=== PATIENT | male | born 1945 | race African-American/Black ===

== ENCOUNTER 2019-10-09 05:03 | Inpatient (IN) | payer OTHER, MEDICARE, SELFPAY ==
[~2019-10-09] VITALS: Ht 172.7 cm; Wt 66.2 kg
[2019-10-09 05:03] VITALS: BP_SYST 130
--- NOTE | 2019-10-09 05:03 | NUR ---
Patient to ER bed 08 to gown for evaluation. Side rails up. Report given to ROMY Nowak.
--- NOTE | 2019-10-09 05:08 | NUR ---
Pt began to pepper, provided surgical mask
--- NOTE | 2019-10-09 05:10 | NUR ---
Pt afebrile. Pt presents with productive cough. Pt denies chills, pain, chest pain, nausea, vomiting, recent travel, and being in contact with anyone confirmed with COVID-19.
--- NOTE | 2019-10-09 05:10 | NUR ---
Pt BIB ALS from [place] with c/o SOB. Pt A&Ox4. Pt states SOB began approximately 30 minutes ago. Pt has history of DM, Multiple Myeloma, CKD, COPD, A-Fib and diagnosed with diagnosed with Pneumonia on 09/13/2019. Per ALS, 5mg albuterol given en route and 20 g IV started on L AC. Per EMS, blood looked "very pink." Per facility, pt recieved blood transfusion for HBG of 6.1 at [facility] before he was returned to [place] on the 10/01/2019. Per facility, pt was started on zosyn 3.375 mg Q6HR IV from 09/14/2019 to 09/19/2019. Per facility, pt does not recieve dialysis. Pt arrives on 6 liters nasal cannula with oxygen satursation at 100%. Pt presents with camilla cath in R chest. Pt presents with labored breathing, pulse of 104 bpm, and respirations of 28. Will continue to monitor.
--- NOTE | 2019-10-09 05:13 | NUR ---
ER at bedside examining patient.
[2019-10-09] MEDS ORDERED: IPRATROPIUM BROM 0.5 MG/2.5 ML VIAL.NEB (ATROVENT) INH ONE (05:15)
[2019-10-09] MEDS ORDERED: ALBUTEROL SULFATE 0.083% 2.5 MG/3 ML VIAL.NEB INH ONE (05:15)
[2019-10-09] MEDS ORDERED: methylPREDNISolone SOD SUCC/PF 62.5 MG/ML VIAL IVP ONE (05:15)
[2019-10-09] MEDS ORDERED: cefTRIAXone 1 GM IVPB PREMIX 50 ML IV ONE (05:15)
--- NOTE | 2019-10-09 05:27 | NUR ---
RT at bedside.
--- NOTE | 2019-10-09 05:28 | NUR ---
Radiology at bedside.
--- NOTE | 2019-10-09 05:35 | NUR ---
Blood for labwork drawn from right wrist. Patient tolerated well. Blood cultures drawn, prior to administration of antibiotic.
--- NOTE | 2019-10-09 05:40 | NUR ---
Pt Dry-heaving in bed. No vomit.
[2019-10-09] MEDS ORDERED: ONDANSETRON HCL 4 MG/2 ML VIAL IVP ONE (05:45)
--- NOTE | 2019-10-09 06:15 | NUR ---
Pt medicated per MD orders. Pt tolerated well.
[2019-10-09 06:45] LABS: ANION GAP 21 (5-15); CALCIUM 8.6 mg/dL (8.4-11.0); CHLORIDE 110 mmol/L (98-107); CREATININE 2.83 mg/dL (0.55-1.30); GLUCOSE 139 mg/dL (70-99); SODIUM SERUM 144 mmol/L (136-145); UREA NITROGEN, BLOOD 57 mg/dL (8-21)
[2019-10-09 06:51] LABS: ALANINE AMINOTRANSFERASE 53 U/L (12-78); ALBUMIN 1.7 g/dL (3.4-4.8); ASPARTATE AMINOTRANSFERASE 38 U/L (10-37); TOTAL BILIRUBIN 0.2 mg/dL (0.0-1.0)
[2019-10-09 06:55] LABS: HEMATOCRIT 36.6 % (36-54); HEMOGLOBIN 12.1 g/dL (14.0-18.0); MEAN CORPUSCULAR HEMOGLOBIN 30 pg (27-31); MEAN CORPUSCULAR HGB CONC 33 % (32-36); MEAN CORPUSCULAR VOLUME 92 fL (79.0-98.0); PLATELET COUNT (AUTO) 59 K/uL (130-430); RED CELL DISTRIBUTION WIDTH 16.3 % (9.0-15.0); WHITE BLOOD COUNT (AUTO) 5.2 K/uL (4.8-10.8)
--- NOTE | 2019-10-09 07:25 | NUR ---
Patient will be admitted to care of [facility]. Admitted to TELEMETRY unit. Awaiting bed placement. Belongings list completed. Complete and up to date summary report printed. SBAR report to be given at bedside with opportunity for questions.
[2019-10-09 07:28] LABS: ATYPICAL LYMPHOCYTES % 1 % (0-0); BAND % (MANUAL) 6 % (0-6); BASOPHILS % (MANUAL) 0 % (0-2); EOSINOPHILS % (MANUAL) 0 % (0-7); LYMPHOCYTES % (MANUAL) 15 % (20-46); MONOCYTES % (MANUAL) 5 % (0-11)
[2019-10-09] MEDS ORDERED: AMIO100T4 PO (07:34)
[2019-10-09] MEDS ORDERED: LIP80 PO (07:34)
[2019-10-09] MEDS ORDERED: ASA81 PO (07:34)
[2019-10-09] MEDS ORDERED: AMLO5TAB4 PO (07:34)
--- NOTE | 2019-10-09 07:35 | NUR ---
Report received from ROMY Dalton. Awaiting room assignment.
--- NOTE | 2019-10-09 07:40 | NUR ---
Patient will be admitted to care of Dr. Rustam Jordan. Admitted to Telemetry unit. Will go to room 124A. Belongings list completed. Complete and up to date summary report printed. SBAR report to be given at bedside with opportunity for questions.
[2019-10-09] MEDS ORDERED: ENAL10TA PO (07:50)
[2019-10-09] MEDS ORDERED: PHEDM120 PO (07:50)
[2019-10-09] MEDS ORDERED: GLUC1KIT IJ (07:50)
[2019-10-09] MEDS ORDERED: COLL15OI3 TP (07:50)
[2019-10-09] MEDS ORDERED: TAMS-11 PO (07:50)
[2019-10-09] MEDS ORDERED: NITSL SL (07:50)
[2019-10-09] MEDS ORDERED: APIX5TAB PO (07:50)
[2019-10-09] MEDS ORDERED: PRO40 PO (07:50)
[2019-10-09] MEDS ORDERED: SSNOVOLOG SUBCUT (07:50)
[2019-10-09] MEDS ORDERED: NEPH PO (07:50)
[2019-10-09] MEDS ORDERED: PREG75CA PO (07:50)
[2019-10-09] MEDS ORDERED: PRED20TA PO (07:50)
[2019-10-09 08:32] VITALS: BP_SYST 123
--- NOTE | 2019-10-09 08:34 | NUR ---
Pulmo consult called: for Dr. Dacosta, regarding COPD, ordered by Dr. Jordan, spoke with Mony at exchange.
--- NOTE | 2019-10-09 08:35 | NUR ---
ID consult called: for Dr. Loomis, regarding pna, ordered by Dr. Jordan, spoke with Kesha.
--- NOTE | 2019-10-09 09:20 | NUR ---
ADMIT NOTE Received pt from ER to the floor with a diagnosis of PNA, COPD EXACERBATION. Admission process initiated. patient oriented to pain management, safety and call light-teach back done.
--- NOTE | 2019-10-09 09:38 | NUR ---
CONSULTATION PAGED/CALLED Reason for Consultation: PNA/COPD Person Who was Notified: DR. CHUN Consulting Physician: DR. CHUN Patient Accounting Representative Specialty: RABBIT FANCIER Ordering Physician: DR. MURTAZA LAND
[2019-10-09 09:57] LABS: BILIRUBIN,URINE NEGATIVE (NEGATIVE); BLOOD, URINE 1+ (NEGATIVE); CLARITY/URINE CLEAR (CLEAR); COLOR,URINE YELLOW (YELLOW); GLUCOSE,URINE NEGATIVE (NEGATIVE); KETONES,URINE NEGATIVE (NEGATIVE); LEUKOCYTE ESTERASE ,URINE TRACE (NEGATIVE); NITRITE, URINE NEGATIVE (NEGATIVE); PH,URINE 5.5 (5.0-8.0); PROTEIN URINE 1+ (NEGATIVE); UROBILINOGEN,URINE 0.2 (0.2-1.0)
[2019-10-09] MEDS ORDERED: NITROGLYCERIN 0.4 MG TAB.SUBL SL PRN (11:15)
[2019-10-09] MEDS ORDERED: ACETAMINOPHEN 325 MG TABLET PO PRN (11:15)
[2019-10-09] MEDS ORDERED: ONDANSETRON HCL 4 MG/2 ML VIAL IVP PRN (11:15)
[2019-10-09] MEDS ORDERED: HYDROcodone/ACETAMIN 5-325 MG TAB (NORCO/ VICODIN) PO PRN (11:15)
[2019-10-09] MEDS ORDERED: D5W 1,000 ML IV PRN (11:30)
[2019-10-09] MEDS ORDERED: DEXTROSE 50%-WATER 50 ML DISP.SYRIN IVP PRN (11:30)
[2019-10-09] MEDS ORDERED: PREGABALIN 75 MG CAPSULE (LYRICA) PO ONE (11:30)
[2019-10-09] MEDS ORDERED: APIXABAN 2.5 MG TABLET PO ONE (11:30)
[2019-10-09] MEDS ORDERED: GLUCOSE 15 GM GEL (in 37.5 GM TUBE) PO PRN (11:30)
--- NOTE | 2019-10-09 11:35 | NUR ---
Nephro consult called: for Dr. Gaming, regarding MANNY, ordered by Dr. Jordan, spoke with Grayson.
--- NOTE | 2019-10-09 11:43 | NUR ---
Cardiac consult called: for Dr. Pao Jordan, regarding elevated troponin, ordered by Dr. Rustam Jordan, spoke with Ruba.
[2019-10-09 11:44] LABS: BACTERIA,URINE FEW /HPF (None Seen); MUCUS,URINE 1+ /LPF (None Seen); YEAST,URINE Rare /HPF (None Seen)
--- NOTE | 2019-10-09 11:48 | NUR ---
PATIENT'S REGULAR MEDS WILL BE GIVEN PER ORDER.
[2019-10-09 12:00] VITALS: BP_SYST 140
[2019-10-09] MEDS ORDERED: PANTOPRAZOLE SODIUM 40 MG TAB PO ONE (12:00)
[2019-10-09] MEDS ORDERED: amLODIPine BESYLATE 5 MG TABLET PO ONE (12:00)
[2019-10-09] MEDS ORDERED: ENALAPRIL MALEATE (VASOTEC) Non-Formular 10 MG TABLET PO ONE (12:00)
[2019-10-09] MEDS ORDERED: AMIODARONE HCL 200 MG TABLET PO ONE (12:00)
[2019-10-09] MEDS ORDERED: NEPHROVITE, (FOLIC ACID/VITAMIN B COMP W-C 1 TAB) PO ONE (12:00)
[2019-10-09] MEDS ORDERED: TAMSULOSIN HCL 0.4 MG CAP PO ONE (12:00)
[2019-10-09] MEDS ORDERED: ASPIRIN 81 MG TAB.CHEW PO ONE (12:00)
[2019-10-09] MEDS: INSULIN REGULAR, HUMAN 100 UNITS/ML, 10 ML VIAL (humuLIN R) SUBCUT PRN ×3 (12:09→21:25)
--- NOTE | 2019-10-09 12:30 | NUR ---
BLOOD SUGAR 294. 6 UNITS OF RI IS GIVEN PER SLIDING SCALE.
[2019-10-09] MEDS ORDERED: FLUCONAZOLE 200 MG TABLET (DIFLUCAN) PO ONE (12:45)
[2019-10-09] MEDS: MEROPENEM 500 MG in NS 50 ML IV SCH (13:59)
[2019-10-09] MEDS: NORMAL SALINE 5 ML DISP.SYRIN IVF SCH ×4 (14:00→22:00)
--- NOTE | 2019-10-09 14:00 | NUR ---
ANTIBIOTICS IS GIVEN PER 'S ORDER.
[2019-10-09] MEDS: AZITHROMYCIN 500 MG in NS 250 ML IV SCH (14:28)
--- NOTE | 2019-10-09 15:34 | NUR ---
PATIENT RECEIVES LAB DRAW STAFF SOFTWARE ENGINEER. TOLERATED WITHOUT DISTRESS.
[2019-10-09 16:00] VITALS: BP_SYST 132
[2019-10-09] MEDS: HYDROcodone/ACETAMIN 10-325 MG TAB PO PRN ×2 (16:25→21:22)
[2019-10-09] MEDS: methylPREDNISolone SOD SUCC 40 MG/ML VIAL IVP SCH (17:29)
[2019-10-09 17:37] LABS: ERYTHROCYTE SEDIMENTATION RATE > 140 MM/HR (0-15)
--- NOTE | 2019-10-09 17:40 | NUR ---
Blood sugar 287. RI is given per sliding scale.
--- NOTE | 2019-10-09 19:30 | NUR ---
Opening note Received SBAR from ROMY Titus. Patient resting in bed, w/eyes closed, no distress noted. Nonlabored breathing on 2L NC. IV is SL to LAC. Bed is locked in lowest position, call light w/in reach, side rails up 2x and bed alarm on.
[2019-10-09 20:00] VITALS: BP_SYST 116
--- NOTE | 2019-10-09 21:08 | NUR ---
Fingerstick BG Fingerstick bgt result was 189 mg/dL, covered w/ 2u of insulin per sliding scale order.
[2019-10-09] MEDS: PREGABALIN 75 MG CAPSULE (LYRICA) PO SCH (21:16)
[2019-10-09] MEDS: ATORVASTATIN 20 MG TABLET PO SCH (21:19)
[2019-10-09] MEDS: APIXABAN 2.5 MG TABLET PO SCH (21:26)
--- NOTE | 2019-10-09 21:26 | NUR ---
Meds / Pain med Due medications given, educated on side effects and he verbalized understanding. He reported severed pain related to 'shingles' whidh is on his right side of chest and travels to lateral and post thoracic area. He was give [place] 10-325 for severe pain as ordered, will continue to monitor.
--- NOTE | 2019-10-09 23:01 | NUR ---
Patient care / bed bath Patient was provided with bed bath, including CHG bath. New linen change to bed, patient tolerated. Safety precautions in place.
--- NOTE | 2019-10-09 23:15 | NUR ---
Lab draw internet technology manager at bed side for blood draw. Patient refused attempt to draw on hands and tech successfully bernabe blood from left wrist; patient tolerated.
[2019-10-10] VITALS: BP_SYST 122
[2019-10-10] MEDS: MEROPENEM 500 MG in NS 50 ML IV SCH ×2 (01:30→13:43)
--- NOTE | 2019-10-10 01:30 | NUR ---
Antibiotic Due antibiotic, Merrem, infusing well. Patient educated on side effects and he verbalized understanding. He was repositioned and has no further needs. Safety precautions in place, will continue to monitor.
--- NOTE | 2019-10-10 03:30 | NUR ---
Resting Patient resting in comfortable position, no SOB, no distress. Safety precautions maintained
[2019-10-10 05:00] VITALS: BP_SYST 122
--- NOTE | 2019-10-10 05:30 | NUR ---
lab draw quality assurance/r&d lab technician in for lab draw
[2019-10-10] MEDS: NORMAL SALINE 5 ML DISP.SYRIN IVF SCH ×6 (05:45→22:00)
[2019-10-10] MEDS: methylPREDNISolone SOD SUCC 40 MG/ML VIAL IVP SCH ×2 (05:47→17:29)
--- NOTE | 2019-10-10 05:50 | NUR ---
meds Due mediation, Solumedrol, given; educated on side effects, he verbalized understanding.
[2019-10-10] MEDS ORDERED: cefTRIAXone 1 GM IVPB PREMIX 50 ML IV SCH (06:00)
--- NOTE | 2019-10-10 06:45 | NUR ---
Dressing change / Fingerstick BG Dressing change done per policy and took photo, documented in MST. Fingerstick bgt result was 133 mg/dL, no coverage.
[2019-10-10 06:46] LABS: ANION GAP 13 (5-15); CALCIUM 8.3 mg/dL (8.4-11.0); CHLORIDE 110 mmol/L (98-107); CREATININE 2.49 mg/dL (0.55-1.30); GLUCOSE 144 mg/dL (70-99); PHOSPHORUS 4.3 mg/dL (2.7-4.5); SODIUM SERUM 141 mmol/L (136-145); UREA NITROGEN, BLOOD 57 mg/dL (8-21)
[2019-10-10 06:48] LABS: BASOPHILS % (AUTO) 0.1 % (0.0-2.0); HEMATOCRIT 23.9 % (36-54); HEMOGLOBIN 7.9 g/dL (14.0-18.0); LYMPHOCYTES # (AUTO) 0.3 K/uL (1.0-5.5); MEAN CORPUSCULAR HEMOGLOBIN 31 pg (27-31); MEAN CORPUSCULAR HGB CONC 33 % (32-36); MEAN CORPUSCULAR VOLUME 93 fL (79.0-98.0); MONOCYTES # (AUTO) 0.4 K/uL (0.0-1.0); MONOCYTES % (AUTO) 7.6 % (1.7-9.3); NEUTROPHILS # (AUTO) 4.2 K/uL (1.8-7.7); PLATELET COUNT (AUTO) 59 K/uL (130-430); RED BLOOD CELL COUNT(AUTO) 2.59 MIL/uL (4.2-6.2); RED CELL DISTRIBUTION WIDTH 16.7 % (9.0-15.0); WHITE BLOOD COUNT (AUTO) 4.9 K/uL (4.8-10.8)
--- NOTE | 2019-10-10 07:05 | NUR ---
Closing note Patient resting in bed, awake, no distress noted. Nonlabored breathing on 2L NC. IV is SL to LAC. Bed is locked in lowest position, call light w/in reach, side rails up 2x and bed alarm on. will endorse care to incoming nurse.
[2019-10-10 08:00] VITALS: BP_SYST 130
--- NOTE | 2019-10-10 08:00 | NUR ---
A/OX4. ON O2 NC AT 2L, SATTING AT 100%. SR ON MONITOR. CALL LIGHT IS AT BEDSIDE IN PATIENT'S HANDS. BED LOCKED AT THE LOWEST POSITION, WILL CONTINUE TO MONITOR.
[2019-10-10] MEDS: PANTOPRAZOLE SODIUM 40 MG TAB PO SCH (08:47)
[2019-10-10] MEDS: PREGABALIN 75 MG CAPSULE (LYRICA) PO SCH ×2 (08:47→21:00)
[2019-10-10] MEDS: NEPHROVITE, (FOLIC ACID/VITAMIN B COMP W-C 1 TAB) PO SCH (08:48)
[2019-10-10] MEDS: TAMSULOSIN HCL 0.4 MG CAP PO SCH (08:48)
[2019-10-10] MEDS: AMIODARONE HCL 200 MG TABLET PO SCH (08:51)
[2019-10-10] MEDS: ENALAPRIL MALEATE (VASOTEC) Non-Formular 10 MG TABLET PO SCH (08:52)
[2019-10-10] MEDS: amLODIPine BESYLATE 5 MG TABLET PO SCH (08:52)
[2019-10-10] MEDS: APIXABAN 2.5 MG TABLET PO SCH ×2 (08:54→20:56)
[2019-10-10] MEDS: BALSAM PERU/CASTOR OIL 60 GM OINT...G. TP SCH (09:00)
[2019-10-10] MEDS ORDERED: ASPIRIN 81 MG TAB.CHEW PO SCH (09:00)
[2019-10-10 09:06] LABS: NEUTROPHILS % (AUTO) 85.3 % (40.0-70.0)
--- NOTE | 2019-10-10 10:10 | NUR ---
Nutrition Update Darrel Scale 15 noted. Pt admitted for PNA, COPD [facility] BMI: 22.2 kg/m2 RD to follow per nutrition care standards.
--- NOTE | 2019-10-10 10:20 | NUR ---
patient is resting at this time. Tolerated without distress.
--- NOTE | 2019-10-10 11:40 | NUR ---
Covid-19 is (-). Charge nurse is aware.
[2019-10-10 12:00] VITALS: BP_SYST 125
[2019-10-10] MEDS: INSULIN REGULAR, HUMAN 100 UNITS/ML, 10 ML VIAL (humuLIN R) SUBCUT PRN ×3 (12:11→21:03)
--- NOTE | 2019-10-10 12:40 | NUR ---
Report is given to ROMY Zuleta, at bedside. Patient is A/Ox4 when the care is transferred.
--- NOTE | 2019-10-10 12:41 | NUR ---
Report Received report received from Tacho STANTON, patient is alert and oriented x4, eating lunch, aspiration precautions in place, denies pain, no distress, patient made of room change after lunch, call light is within reach, fall and aspiration precautions in place.
--- NOTE | 2019-10-10 14:00 | NUR ---
Rounds/Medication patient resting in bed, awake, denies pain, no distress, educated on IV antibiotic uses and potential side effects, he verbalized understanding, IV line is patent and infusing well, turned, cleaned and repositioned patient with DISK OPERATOR, continuing to monitor, bed in lowest position, three side rails up, bed alarm on, call light placed within reach, fall and aspiration precautions in place.
[2019-10-10 14:17] LABS: HEMATOCRIT 24.1 % (36-54)
[2019-10-10] MEDS: AZITHROMYCIN 500 MG in NS 250 ML IV SCH (14:48)
[2019-10-10 16:13] VITALS: BP_SYST 106
--- NOTE | 2019-10-10 17:30 | NUR ---
RN rounds/Medication patient resting in bed, eyes closed, breathing is even and unlabored, easy to wake, patient denies pain, no distress, blood glucose checked and insulin coverage provided per MD orders, educated the patient on Solu-Medrol uses and potential side effects, patient verbalized understanding, IV line is patent and infusing well, no other needs at this time, continuing to monitor, bed in lowest position, three side rails up, bed alarm on, call light within reach, fall and aspiration precautions in place.
--- NOTE | 2019-10-10 18:37 | NUR ---
Closing note patient resting in bed, eyes closed, breathing is even and unlabored, no signs of distress, IV line is patent and infusing well, all needs met, will endorse report to NOC shift nurse, bed in lowest position, three side rails up, bed alarm on, fall and aspiration precautions in place, call light is within reach.
--- NOTE | 2019-10-10 19:40 | NUR ---
Opening Notes Patient is awake, talking on the phone at this time. No signs of distress noted. Breathing is even and unlabored. IV is patent and infusing fluids TKO. No other needs at this time. Bed is locked in the lowest position. Side rails up X3. Call light within reach
[2019-10-10 20:00] VITALS: BP_SYST 117
[2019-10-10] MEDS: ATORVASTATIN 20 MG TABLET PO SCH (20:56)
--- NOTE | 2019-10-10 21:00 | NUR ---
Medications Administered scheduled medications. Patient refused Lyrica. Educated patient on action and side effects. Patient verbalized an understanding. Accu check completed. Blood sugar was 199, administered insulin per sliding scale. Repositioned patient at this time. No other needs. Bed is locked in the lowest position. Side rails up X3. Call light within reach
[2019-10-11] MEDS: MEROPENEM 500 MG in NS 50 ML IV SCH ×2 (00:15→13:25)
--- NOTE | 2019-10-11 00:15 | NUR ---
Medication/Rounds Patient sleeping at this time. No signs of distress noted. Breathing is unlabored and even. Administered scheduled medications, educated patient on the side effects. Patient verbalized an understanding. IV patent and infusing medication. Repositioned patient at this time. No other needs. Call light is within reach. Bed is locked in the lowest position. Side rails up X3.
[2019-10-11 00:44] VITALS: BP_SYST 126
--- NOTE | 2019-10-11 02:00 | NUR ---
RN Rounds Patient sleeping at this time. No signs of distress noted. Breathing is unlabored and even. IV patent and infusing TKO. Repositioned patient at this time. No other needs. Call light is within reach. Bed is locked in the lowest position. Side rails up X3.
[2019-10-11] MEDS: methylPREDNISolone SOD SUCC 40 MG/ML VIAL IVP SCH ×2 (05:56→17:16)
[2019-10-11] MEDS: NORMAL SALINE 5 ML DISP.SYRIN IVF SCH ×6 (05:57→22:00)
--- NOTE | 2019-10-11 06:15 | NUR ---
Medication/ Rounds Administered scheduled medication, patient tolerated well. Educated patient on possible side effects, verbalized an understanding. No signs of distress noted. Breathing is unlabored and even. IV patent and infusing TKO. Repositioned patient at this time. No other needs. Call light is within reach. Bed is locked in the lowest position. Side rails up X3.
[2019-10-11 06:48] LABS: BASOPHILS % (AUTO) 0.1 % (0.0-2.0); LYMPHOCYTES # (AUTO) 0.4 K/uL (1.0-5.5); LYMPHOCYTES % (AUTO) 9.4 % (20.5-51.5); MEAN CORPUSCULAR HEMOGLOBIN 31 pg (27-31); MEAN CORPUSCULAR HGB CONC 33 % (32-36); MEAN CORPUSCULAR VOLUME 93 fL (79.0-98.0); MONOCYTES # (AUTO) 0.3 K/uL (0.0-1.0); MONOCYTES % (AUTO) 7.2 % (1.7-9.3); NEUTROPHILS % (AUTO) 83.3 % (40.0-70.0); PLATELET COUNT (AUTO) 60 K/uL (130-430); RED BLOOD CELL COUNT(AUTO) 2.26 MIL/uL (4.2-6.2); RED CELL DISTRIBUTION WIDTH 17.1 % (9.0-15.0); WHITE BLOOD COUNT (AUTO) 4.8 K/uL (4.8-10.8)
--- NOTE | 2019-10-11 07:02 | NUR ---
Closing Notes Patient is resting at this time. No signs of distress noted. Breathing is even and unlabored. IV to left AC is patent. Urinal at bedside. All needs met throughout the shift. Bed is locked in the lowest position. Side rails up X3. Call light within reach. Will endorse care to dayshift RN
[2019-10-11 07:10] LABS: HEMOGLOBIN 6.9 g/dL (14.0-18.0)
[2019-10-11 07:11] LABS: HEMATOCRIT 20.9 % (36-54)
--- NOTE | 2019-10-11 07:14 | NUR ---
godfrey graves for critical lab.
[2019-10-11 07:17] LABS: ALANINE AMINOTRANSFERASE 44 U/L (12-78); ALBUMIN 1.5 g/dL (3.4-4.8); ANION GAP 14 (5-15); ASPARTATE AMINOTRANSFERASE 28 U/L (10-37); CALCIUM 7.9 mg/dL (8.4-11.0); CHLORIDE 108 mmol/L (98-107); CREATININE 2.33 mg/dL (0.55-1.30); GLUCOSE 127 mg/dL (70-99); PHOSPHORUS 3.3 mg/dL (2.7-4.5); POTASSIUM 5.7 mmol/L (3.5-5.1); SODIUM SERUM 139 mmol/L (136-145); TOTAL BILIRUBIN 0.3 mg/dL (0.0-1.0); UREA NITROGEN, BLOOD 52 mg/dL (8-21)
--- NOTE | 2019-10-11 07:27 | NUR ---
CRITICAL LAB HEMOGLOBIN 6.9, HEMATOCRIT 20.9, DR. HAUSER WAS PAGED AT [phone], HAS NOT CALLED BACK. ENDORSED CRITICAL LABS TO [facility] ST[facility]ON.
--- NOTE | 2019-10-11 07:40 | NUR ---
AM rounds: Patient is oriented x4. Denies pain. Low H/H 6.9/21.[address] Jordan, new orders received. Call light within reach.
[2019-10-11 07:42] LABS: ERYTHROCYTE SEDIMENTATION RATE > 140 MM/HR (0-15)
[2019-10-11] MEDS ORDERED: SODIUM POLYSTYRENE SULFONATE 15 GM/60 ML UDBTL PO ONE (07:45)
--- NOTE | 2019-10-11 08:04 | NUR ---
CONSULTATION PAGED/CALLED Reason for Consultation: possible GI bleed Person Who was Notified: Yasmin Consulting Physician: Elizabeth precision lens generator Consulting Database Administrator Specialty: GI Ordering Physician: Jr Larry
[2019-10-11 08:31] LABS: C-REACTIVE PROTEIN QUANT 6.2 mg/dL (0-0.5)
--- NOTE | 2019-10-11 08:53 | NUR ---
CONSULTATION PAGED/CALLED Reason for Consultation: Anemia/Throbocytopenia Person Who was Notified: Megan Consulting Physician: Raya Onofre Flour Mixer Helper Specialty: Hemato Ordering Physician: Jr Cruz
[2019-10-11] MEDS: PREGABALIN 75 MG CAPSULE (LYRICA) PO SCH ×3 (09:00→21:00)
[2019-10-11] MEDS: TAMSULOSIN HCL 0.4 MG CAP PO SCH (09:14)
[2019-10-11] MEDS: ENALAPRIL MALEATE (VASOTEC) Non-Formular 10 MG TABLET PO SCH (09:15)
[2019-10-11] MEDS: NEPHROVITE, (FOLIC ACID/VITAMIN B COMP W-C 1 TAB) PO SCH (09:16)
[2019-10-11] MEDS: amLODIPine BESYLATE 5 MG TABLET PO SCH (09:16)
[2019-10-11] MEDS: PANTOPRAZOLE SODIUM 40 MG TAB PO SCH (09:16)
[2019-10-11] MEDS: AMIODARONE HCL 200 MG TABLET PO SCH (09:20)
[2019-10-11] MEDS ORDERED: FOLIC ACID 1 MG TABLET PO ONE (10:30)
--- NOTE | 2019-10-11 10:45 | NUR ---
BT INITIATION: Consent signed per agreeing to administration of blood. Blood has been type and crossmatched. Blood sent from blood bank. Information on unit of blood checked against patient wristband at bedside by two nurses. All information matches. Patient or responsible republican informed of potential complications associated with blood transfusion. Informed of possible transfusion reaction symptoms. Aware of need to notify nurse at once of itching, shortness of breath, flushing, feeling of impending doom, or other symptoms not previously present. Vital signs taken within 5 minutes prior to initiation of transfusion. RN will remain with patient for first 15 minutes of transfusion at which time vital signs will be re-assessed.
--- NOTE | 2019-10-11 11:00 | NUR ---
15 minute check post initiation of blood transfusion: No reactions noted. Tolerating the transfusion well.
[2019-10-11 11:16] VITALS: BP_SYST 134
[2019-10-11] MEDS: INSULIN REGULAR, HUMAN 100 UNITS/ML, 10 ML VIAL (humuLIN R) SUBCUT PRN ×2 (11:24→20:45)
--- NOTE | 2019-10-11 11:36 | NUR ---
Dietitian Recommendations *Re[facility] Renal Standard diet, Low Potassium. *Encourage pt to increase PO intake. *Continue nephrovite. Please see Nutritional Assessment for details. MAKSIM, RD
[2019-10-11] MEDS: BALSAM PERU/CASTOR OIL 60 GM OINT...G. TP SCH (13:25)
--- NOTE | 2019-10-11 13:35 | NUR ---
BLOOD TRANSFUSION COMPLETION: Transfusion is completed, no reactions noted.
[2019-10-11] MEDS: AZITHROMYCIN 500 MG in NS 250 ML IV SCH (15:24)
--- NOTE | 2019-10-11 15:54 | NUR ---
Paid Search Marketing Analyst :met with pt. to conduct a [facility] ans Social Work Interview GLAZIER STRUCTURAL GLASS called pts. room, [phone], but there was no answer. GLAZIER STRUCTURAL GLASS called ans spoke to his daughter, Teer Abreu. She was able to assist in confirming the demographic info. She stated pt. has been at [place] on and off for a few months. She also mentioned when pt. is not at [place], he is at [facility] or [place] for medical treatment. She stated the goal is to have him eventually come back home. Pt. resides at home with her, his daughter, her and their children. Daughter Tere stated she is the POA, but does not have paperwork to show this. GLAZIER STRUCTURAL GLASS stated she can send it to her in the mail and explained to fill it out with her father and either get it notorized or signed by two witnesses. GLAZIER STRUCTURAL GLASS thanked her for her input and will remain available as needed.
[2019-10-11 16:34] VITALS: BP_SYST 138
--- NOTE | 2019-10-11 18:40 | NUR ---
End of shift Needs attended. No change in assessment.
--- NOTE | 2019-10-11 19:40 | NUR ---
Opening Notes Patient is awake, watching TV at this time. No signs of distress noted. Breathing is even and unlabored. IV is patent and infusing fluids TKO. No other needs at this time. Bed is locked in the lowest position. Side rails up X3. Call light within reach
[2019-10-11] MEDS: ATORVASTATIN 20 MG TABLET PO SCH (20:43)
--- NOTE | 2019-10-11 20:45 | NUR ---
Medications Administered scheduled medications, patient refused Lyrica at this time. Accu check was completed, blood glucose 169, administered insulin per sliding scale. Educated patient on side effects, verbalized an understanding. Patient tolerated well. repositioned patient at this time. Bed is locked in the lowest position. Side rails up X3. Call light within reach
--- NOTE | 2019-10-11 22:13 | NUR ---
A-fib Patient converted to A-fib at 2213. Assessed patient, no signs/symptoms of chest pain or dizziness. patient states "I feel fine." Bp 127/91, HR around 125, up to 140's. Will continue to monitor. Dr. Jordan,Y to be paged for orders
--- NOTE | 2019-10-11 22:30 | NUR ---
Surendra Cruz Informed Julian Birch Y of patient converting to A-fib and current status. Orders given by , RN read back orders. RN to input orders.
[2019-10-11] MEDS ORDERED: DILTIAZEM HCL 125 MG in D5W 100 ML IV SCH (22:45)
[2019-10-11] MEDS ORDERED: DILTIAZEM HCL 25 MG/5 ML VIAL IVP ONE (22:45)
--- NOTE | 2019-10-11 23:10 | NUR ---
Paged Dr. Jordan,Y Patient converted back to sinus rhythm at 2255 before Cardizem was given. MD Jordan was informed of conversion, new orders given. RN read back orders, and to input new orders.
[2019-10-11] MEDS: DILTIAZEM HCL 30 MG TABLET PO SCH (23:33)
[2019-10-11 23:38] LABS: BILIRUBIN,URINE NEGATIVE (NEGATIVE); BLOOD, URINE 1+ (NEGATIVE); CLARITY/URINE CLEAR (CLEAR); COLOR,URINE YELLOW (YELLOW); GLUCOSE,URINE TRACE (NEGATIVE); KETONES,URINE NEGATIVE (NEGATIVE); LEUKOCYTE ESTERASE ,URINE NEGATIVE (NEGATIVE); NITRITE, URINE NEGATIVE (NEGATIVE); PROTEIN URINE 2+ (NEGATIVE); UROBILINOGEN,URINE 0.2 (0.2-1.0)
--- NOTE | 2019-10-11 23:40 | NUR ---
Medication Administered Cardizem, PO per orders. Educated patient on action and side effects. patient verbalized an understanding. No other needs at this time. Addendum: 10/11/19 at 2342 by Sirena Martino RN BP is 136/81 and HR 74
[2019-10-12] VITALS: BP_SYST 136
[2019-10-12 00:13] LABS: BACTERIA,URINE FEW /HPF (None Seen); WBC,URINE 0-3 /HPF (0-3)
[2019-10-12] MEDS: MEROPENEM 500 MG in NS 50 ML IV SCH ×2 (01:24→12:07)
--- NOTE | 2019-10-12 01:30 | NUR ---
Medication/ Rounds Administered scheduled IV meds. Educated patient on action and side effects of medication, patient verbalized an understanding. Patient tolerated well, no adverse side effects noted. Repositioned patient at this time. No other needs. Bed is locked in the lowest position. Call light is within reach. Side rails up X3.
--- NOTE | 2019-10-12 03:58 | NUR ---
RN Rounds Patient sleeping at this time. No signs of distress noted. Breathing is even and unlabored. Heart rhythm is maintaining in sinus rhythm. Bed is locked in the lowest position. Call light within reach. Side rails up X 3. IV is patent and infusing TKO. No other needs at this time.
[2019-10-12 06:00] VITALS: BP_SYST 130
[2019-10-12] MEDS: NORMAL SALINE 5 ML DISP.SYRIN IVF SCH ×6 (06:00→22:04)
[2019-10-12] MEDS: DILTIAZEM HCL 30 MG TABLET PO SCH ×3 (06:18→22:04)
[2019-10-12] MEDS: methylPREDNISolone SOD SUCC 40 MG/ML VIAL IVP SCH ×2 (06:22→17:12)
--- NOTE | 2019-10-12 06:31 | NUR ---
Medication/ Accu Administered scheduled medication, patient tolerated well. Educated patient on possible side effects, verbalized an understanding. No signs of distress noted. Breathing is unlabored and even. IV patent and infusing TKO. Accu check was completed, blood sugar 124, no insulin coverage needed. Repositioned patient at this time. No other needs. Call light is within reach. Bed is locked in the lowest position. Side rails up X3.
[2019-10-12 07:30] VITALS: BP_SYST 127
--- NOTE | 2019-10-12 07:36 | NUR ---
AM rounds: Patient is oriented x4. Sinus max on the monitor at 57/min. Safety precautions maintained. Call light within reach.
[2019-10-12 07:47] LABS: ANION GAP 11 (5-15); C-REACTIVE PROTEIN QUANT 3.3 mg/dL (0-0.5); CALCIUM 8.1 mg/dL (8.4-11.0); CHLORIDE 96 mmol/L (98-107); CREATININE 2.22 mg/dL (0.55-1.30); GLUCOSE 128 mg/dL (70-99); PHOSPHORUS 3.8 mg/dL (2.7-4.5); POTASSIUM 4.8 mmol/L (3.5-5.1); SODIUM SERUM 126 mmol/L (136-145); UREA NITROGEN, BLOOD 45 mg/dL (8-21)
[2019-10-12 07:54] LABS: BASOPHILS % (AUTO) 0.1 % (0.0-2.0); EOSINOPHILS % (AUTO) 0.1 % (0.0-4.0); HEMATOCRIT 22.4 % (36-54); HEMOGLOBIN 7.4 g/dL (14.0-18.0); LYMPHOCYTES # (AUTO) 0.3 K/uL (1.0-5.5); LYMPHOCYTES % (AUTO) 7.9 % (20.5-51.5); MEAN CORPUSCULAR HEMOGLOBIN 30 pg (27-31); MEAN CORPUSCULAR HGB CONC 33 % (32-36); MEAN CORPUSCULAR VOLUME 92 fL (79.0-98.0); MONOCYTES # (AUTO) 0.3 K/uL (0.0-1.0); MONOCYTES % (AUTO) 6.6 % (1.7-9.3); NEUTROPHILS # (AUTO) 3.7 K/uL (1.8-7.7); NEUTROPHILS % (AUTO) 85.3 % (40.0-70.0); RED BLOOD CELL COUNT(AUTO) 2.45 MIL/uL (4.2-6.2); RED CELL DISTRIBUTION WIDTH 16.5 % (9.0-15.0); RETICULOCYTE COUNT 1.3 % (0.5-1.5); WHITE BLOOD COUNT (AUTO) 4.3 K/uL (4.8-10.8)
[2019-10-12 08:00] LABS: TOTAL IRON BIND. CAPACITY 118 ug/dL (250-450)
[2019-10-12 08:15] LABS: PLATELET COUNT (AUTO) 62 K/uL (130-430)
[2019-10-12 08:49] LABS: ERYTHROCYTE SEDIMENTATION RATE > 140 MM/HR (0-15)
[2019-10-12] MEDS: PREGABALIN 75 MG CAPSULE (LYRICA) PO SCH ×2 (09:00→21:10)
--- NOTE | 2019-10-12 09:00 | NUR ---
MD rounds: Seen by Dr. Rustam Jordan, made aware of Afib episodes last night. Will keep patient on tele.
[2019-10-12 09:12] LABS: IMMUNOGLOBULIN G, SERUM 73 mg/dL (603-1613); IMMUNOGLOBULIN M, SERUM 5 mg/dL (15-143)
[2019-10-12] MEDS: TAMSULOSIN HCL 0.4 MG CAP PO SCH (09:12)
[2019-10-12] MEDS: FOLIC ACID 1 MG TABLET PO SCH (09:12)
[2019-10-12] MEDS: PANTOPRAZOLE SODIUM 40 MG TAB PO SCH (09:12)
[2019-10-12] MEDS: NEPHROVITE, (FOLIC ACID/VITAMIN B COMP W-C 1 TAB) PO SCH (09:12)
[2019-10-12] MEDS: AMIODARONE HCL 200 MG TABLET PO SCH (09:13)
[2019-10-12] MEDS: amLODIPine BESYLATE 5 MG TABLET PO SCH (09:13)
[2019-10-12] MEDS: ENALAPRIL MALEATE (VASOTEC) Non-Formular 10 MG TABLET PO SCH (09:14)
[2019-10-12 12:00] VITALS: BP_SYST 133
[2019-10-12] MEDS: INSULIN REGULAR, HUMAN 100 UNITS/ML, 10 ML VIAL (humuLIN R) SUBCUT PRN ×2 (12:04→21:16)
[2019-10-12 12:06] LABS: ALPHA-1-GLOBULIN 0.4 g/dL (0.0-0.4); ALPHA-2-GLOBULIN 0.9 g/dL (0.4-1.0)
--- NOTE | 2019-10-12 13:00 | NUR ---
Rounds: Resting in bed. no discomfort.
[2019-10-12] MEDS: AZITHROMYCIN 500 MG in NS 250 ML IV SCH (14:55)
[2019-10-12] MEDS: BALSAM PERU/CASTOR OIL 60 GM OINT...G. TP SCH (14:58)
[2019-10-12 16:39] VITALS: BP_SYST 129
[2019-10-12] MEDS ORDERED: BISACODYL 5 MG TABLET.DR (DULCOLAX) PO ONE (17:00)
[2019-10-12] MEDS ORDERED: GOLYTELY / COLYTE SOLUTION 4 LITERS PO ONE (18:00)
[2019-10-12] MEDS: DILTIAZEM HCL 25 MG/5 ML VIAL IVP PRN (18:04)
[2019-10-12 18:11] LABS: MYCOPLASMA PNEUMONIAE IgM <770 U/mL (0-769)
--- NOTE | 2019-10-12 18:11 | NUR ---
Uncontrolled AFIB: Was notified by MT of heart rate 147/min uncontrolled AFIB on the monitor at Patient denies discomfort. Cardizem 10 mg IVP given at 1804. Heart rate now is 114/min.
--- NOTE | 2019-10-12 19:30 | NUR ---
Opening Notes PT RESTING IN BED. NO S/S OF ACUTE DISTRESS NOTED AT THIS TIME. PT DENIED ANY PAIN. BREATHING IS EVEN AND UNLABORED TO 02 VIA NASAL CANNULA AT 2L. POC DISCUSSED WITH PT REGARDING COLONOSCOPY AND EGD SCHEDULED FOR TOMORROW. PT VERBALIZED UNDERSTANDING. TO BRING GOLYTELY TO PT. NO OTHER NEEDS AT THIS TIME. SAFETY PRECAUTIONS ARE IN PLACE. LOCKED BED TO LOWEST POSITION. THREE SIDE RAILS UP. CALL LIGHT WITHIN REACH. WILL MONITOR
[2019-10-12 20:00] VITALS: BP_SYST 143
[2019-10-12] MEDS: ATORVASTATIN 20 MG TABLET PO SCH (21:10)
--- NOTE | 2019-10-12 21:16 | NUR ---
ACCU-CHECK BS OF 276. 6 UNITS OF REGULAR INSULIN ADMINISTERED PER SLIDING SCALE.
--- NOTE | 2019-10-12 23:54 | NUR ---
PAGED; I PAGED DR. SPAULDING I SPOKE WITH JEFFRY CORTES
[2019-10-13 00:48] VITALS: BP_SYST 151
[2019-10-13] MEDS: MEROPENEM 500 MG in NS 50 ML IV SCH (00:56)
--- NOTE | 2019-10-13 00:59 | NUR ---
PAGED I PAGED DR. SPAULDING I SPOKE WITH JEFFRY CORTES THIS IS THE SECOND CALL
--- NOTE | 2019-10-13 01:00 | NUR ---
SPOKE TO DR. CAMPA REGARDING PT REFUSING TO DRINK GOLYTELY. INFORMED MD THAT PT HAS MORE THAN HALF OF THE GOLYTELY REMAINING. MD STATED THAT PT HAS UNTIL 6 AM TO FINISH DRINKING GOLYTELY. WILL CONTINUE TO ENCOURAGE PT TO DRINK AND WILL CONTINUE TO EDUCATE.
--- NOTE | 2019-10-13 03:11 | NUR ---
RN ROUNDS PT RESTING IN BED. NO S/S OF DISTRESS NOTED AT THIS TIME. HAVE BEEN CONTINUING TO ENCOURAGE PT TO DRINK GOLYTELY. PT STATING THAT HE WILL TRY TO DRINK LATER. SAFETY MAINTAINED. WILL MONITOR.
--- NOTE | 2019-10-13 05:30 | NUR ---
TAP WATER ENEMA PT GIVEN 8 TAP WATER ENEMAS. PT DECLINED FURTHER ENEMAS DESPITE NOT BEING CLEAR. PT EDUCATED REGARDING BOWEL PREP. CONTINUE TO REFUSE. TO ESTEPHANIA PRASAD TO INFORM THAT PT NOT CLEARED.
[2019-10-13] MEDS: DILTIAZEM HCL 30 MG TABLET PO SCH ×3 (06:00→21:31)
[2019-10-13] MEDS: NORMAL SALINE 5 ML DISP.SYRIN IVF SCH ×6 (06:00→21:33)
[2019-10-13] MEDS: methylPREDNISolone SOD SUCC 40 MG/ML VIAL IVP SCH ×2 (06:11→17:47)
--- NOTE | 2019-10-13 06:29 | NUR ---
CLOSING NOTES PT RESTING IN BED. NO S/S OF ACUTE DISTRESS NOTED AT THIS TIME. PT DENIED ANY PAIN. BREATHING IS EVEN AND UNLABORED TO 02 VIA NASAL CANNULA AT 2L. PT FINISHED 70% OF GOLYTELY AND RECEIVED TAP WATER ENEMA. STILL AWAITING GI DR TO CALL BACK. SAFETY PRECAUTIONS ARE IN PLACE. LOCKED BED TO LOWEST POSITION. THREE SIDE RAILS UP. CALL LIGHT WITHIN REACH. WILL CONTINUE TO MONITOR UNTIL ENDORSE TO DAY SHIFT.
[2019-10-13 07:07] LABS: ANION GAP 16 (5-15); CALCIUM 7.8 mg/dL (8.4-11.0); CHLORIDE 104 mmol/L (98-107); CREATININE 2.01 mg/dL (0.55-1.30); GLUCOSE 116 mg/dL (70-99); PHOSPHORUS 3.4 mg/dL (2.7-4.5); POTASSIUM 4.9 mmol/L (3.5-5.1); SODIUM SERUM 138 mmol/L (136-145); UREA NITROGEN, BLOOD 36 mg/dL (8-21)
[2019-10-13 07:10] LABS: FERRITIN 239 ng/mL (30-400)
[2019-10-13 07:15] LABS: BASOPHILS % (AUTO) 0.2 % (0.0-2.0); EOSINOPHILS % (AUTO) 0.1 % (0.0-4.0); HEMOGLOBIN 8.3 g/dL (14.0-18.0); LYMPHOCYTES # (AUTO) 0.4 K/uL (1.0-5.5); LYMPHOCYTES % (AUTO) 8.8 % (20.5-51.5); MEAN CORPUSCULAR HEMOGLOBIN 31 pg (27-31); MEAN CORPUSCULAR HGB CONC 33 % (32-36); MEAN CORPUSCULAR VOLUME 93 fL (79.0-98.0); MONOCYTES # (AUTO) 0.3 K/uL (0.0-1.0); MONOCYTES % (AUTO) 6.2 % (1.7-9.3); NEUTROPHILS # (AUTO) 4.3 K/uL (1.8-7.7); NEUTROPHILS % (AUTO) 84.7 % (40.0-70.0); PLATELET COUNT (AUTO) 71 K/uL (130-430); RED CELL DISTRIBUTION WIDTH 16.3 % (9.0-15.0)
--- NOTE | 2019-10-13 07:41 | NUR ---
SPOKE TO DR. CAMPA INFORMED THAT PT IS STILL NOT CLEAR. NEW ORDERS RECEIVED. ENDORSED TO DAY SHIFT RN, SANJU.
[2019-10-13] MEDS ORDERED: BISACODYL 5 MG TABLET.DR (DULCOLAX) PO ONE (07:45)
[2019-10-13] MEDS ORDERED: MAGNESIUM CITRATE 300 ML ORAL SOLUTION PO ONE (07:45)
[2019-10-13 08:13] LABS: FOLATE (FOLIC ACID) >20.0 ng/mL (>3.0)
[2019-10-13 08:16] LABS: ERYTHROCYTE SEDIMENTATION RATE > 140 MM/HR (0-15)
--- NOTE | 2019-10-13 08:32 | NUR ---
Notified Dr. Reece re: pt's latest lab results of BUN/Cr=36/2.01 and H/H=8.3/25.0, Platelets=71, Mg2+=2.5 and COVID-19 Negative. CXR=Hazy Left perihilar infiltrates. Pt also still with BM's a little brown. Pt to have Nephrology consult. Also, received order to hold Magnesium Citrate. Dr. Reece on his way to hospital for pt assessment. Awaiting arrival.
[2019-10-13 08:37] LABS: C-REACTIVE PROTEIN QUANT 1.6 mg/dL (0-0.5)
[2019-10-13] MEDS: PREGABALIN 75 MG CAPSULE (LYRICA) PO SCH ×3 (09:00→20:18)
[2019-10-13] MEDS: PANTOPRAZOLE SODIUM 40 MG TAB PO SCH (09:35)
[2019-10-13] MEDS: TAMSULOSIN HCL 0.4 MG CAP PO SCH (09:35)
[2019-10-13] MEDS: ENALAPRIL MALEATE (VASOTEC) Non-Formular 10 MG TABLET PO SCH (09:36)
[2019-10-13] MEDS: FOLIC ACID 1 MG TABLET PO SCH (09:36)
[2019-10-13] MEDS: AMIODARONE HCL 200 MG TABLET PO SCH (09:36)
[2019-10-13] MEDS: NEPHROVITE, (FOLIC ACID/VITAMIN B COMP W-C 1 TAB) PO SCH (09:36)
[2019-10-13] MEDS: amLODIPine BESYLATE 5 MG TABLET PO SCH (09:37)
[2019-10-13] MEDS: BALSAM PERU/CASTOR OIL 60 GM OINT...G. TP SCH (10:43)
[2019-10-13 12:00] VITALS: BP_SYST 145
[2019-10-13] MEDS ORDERED: NAFCILLIN SODIUM 1 GM in NS 50 ML IV SCH (12:00)
[2019-10-13] MEDS: SOD FERRIC GLUC COMPLEX/SUC 125 MG in NS 100 ML IV SCH (12:27)
[2019-10-13] MEDS: DEXAMETHASONE SOD PHOSPHATE 10 MG/ML VIAL IVP SCH ×3 (12:32→23:18)
--- NOTE | 2019-10-13 13:55 | NUR ---
1200: Spoke with landscape laborer re: order for pt to have blood culture drawn. tool technician stated that they cannot view the order. Notifed landscape laborer that order will be printed for proof of order for blood culture to be drawn as antibiotic on hold until blood culture is drawn. tool technician stated they will send someone. Awaiting straightener gun parts's arrival. 1300: Corn Husker Machine Operator still not here. Spoke with landscape laborer re: order for pt to have blood culture drawn. tool technician stated that they still cannot view the order. Notifed landscape laborer that order has been printed for proof of order for blood culture to be drawn as antibiotic on hold until blood culture is drawn. tool technician stated they will send someone. Still Awaiting straightener gun parts's arrival. 1352: Left message to Dashawn Munroe, Topographic Computator, re: pt has order for blood cultures since 1145 this AM and called Lab twice for blood draw and stated they would send someone. Notified lab that order is printed here at nurse's station. Still Awaiting straightener gun parts's arrival. 1353: Spoke with landscape laborer again re: order for pt to have blood culture drawn. tool technician stated that they still cannot view the order. Notifed landscape laborer that order has been printed for proof of order for blood culture to be drawn as antibiotic on hold until blood culture is drawn. tool technician stated they will send someone right away. Still Awaiting straightener gun parts's arrival.
[2019-10-13 17:24] VITALS: BP_SYST 150
[2019-10-13] MEDS ORDERED: GOLYTELY / COLYTE SOLUTION 4 LITERS PO ONE (18:00)
--- NOTE | 2019-10-13 19:30 | NUR ---
OPENING NOTES RECEIVED SBAR REPORT. PT RESTING IN BED. NO S/S OF ACUTE DISTRESS. PT DENIES ANY PAIN. BREATHING IS EVEN AND UNLABORED TO 02 VIA NC AT 2L. SSAFETY PRECAUTIONS ARE IN PLACE. LOCKED BED TO LOWEST POSITION. THREE SIDE RAILS UP. CALL LIGHT WITHIN REACH. WILL MONITOR.
[2019-10-13] MEDS: ATORVASTATIN 20 MG TABLET PO SCH (20:15)
--- NOTE | 2019-10-13 20:18 | NUR ---
ACCUE-CHECK/MEDICATION PASS BS OF 140. NO INSULIN COVERAGE AT THIS TIME. SCHEDULED MEDICATION ADMINISTERED. DISCUSSED MEDICATION ACTIONS AND POTENTIAL SIDE EFFECTS. PT VERBALIZED UNDERSTANDING. NO S/S OF ADVERSE REACTION NOTED. SAFETY AND FALL PRECAUTIONS IN PLACE. WILL MONITOR.
[2019-10-13] MEDS: NAFCILLIN SODIUM 1 GM in NS 50 ML IV SCH (21:32)
[2019-10-13] MEDS: DILTIAZEM HCL 25 MG/5 ML VIAL IVP PRN (22:04)
--- NOTE | 2019-10-13 22:04 | NUR ---
CARDIZEM IV PUSH PT HR >130. ADMINISTERED CARDIZEM IV PUSH. PT DENIES ANY PAIN AT THIS TIME. RESTING IN BED. SAFETY AND FALL PRECAUTIONS IN PLACE. WILL CONTINUE TO MONITOR HEART RATE.
--- NOTE | 2019-10-14 | NUR ---
REFUSING GOLYTELY PT DRANK GOLYTELY LESS THAN 10%. PT REFUSED TO DRINK GOLYTELY ANYMORE. INFORMED (). TOLD US TO ENCOURAGE PT TO DRINK GOLYTELY SLOWLY BUT PT REFUSED AGAIN. MENTIONED THAT PT CAN FINISH GOLYTELY VIA NG TUBE BUT PT REFUSED. PT AWARE THAT HE CAN'T DO PROCEDURE UNLESS HE FINISHES THE GOLYTELY.
[2019-10-14 00:40] VITALS: BP_SYST 147
--- NOTE | 2019-10-14 02:00 | NUR ---
SLEEPING PT RESTING IN BED. HEART RATE NORMAL RANGE. NO S/S OF ACUTE DISTRESS. BREATHING IS EVEN AND UNLABORED TO 02 VIA NC AT 2L. SAFETY PRECAUTIONS ARE IN PLACE. LOCKED BED TO LOWEST POSITION. THREE SIDE RAILS UP. CALL LIGHT WITHIN REACH. WILL CONTINUE TO MONITOR.
--- NOTE | 2019-10-14 04:00 | NUR ---
ANTIBIOTICS HUNG ANTIBIOTICS ORDERED RATE. PT TOLERATING WELL. NO S/S OF ADVERSE REACTION NOTED. ABLE TO SEE RISE AND FALL RESPIRATION. SAFETY AND FALL PRECAUTIONS IN PLACE. WILL CONTINUE TO MONITOR.
[2019-10-14] MEDS: NAFCILLIN SODIUM 1 GM in NS 50 ML IV SCH ×4 (04:49→22:38)
[2019-10-14] MEDS: DILTIAZEM HCL 30 MG TABLET PO SCH ×3 (05:15→22:17)
[2019-10-14] MEDS: methylPREDNISolone SOD SUCC 40 MG/ML VIAL IVP SCH ×2 (05:16→18:05)
[2019-10-14] MEDS: NORMAL SALINE 5 ML DISP.SYRIN IVF SCH ×6 (05:16→22:18)
[2019-10-14] MEDS: DEXAMETHASONE SOD PHOSPHATE 10 MG/ML VIAL IVP SCH ×3 (05:18→18:05)
--- NOTE | 2019-10-14 05:56 | NUR ---
SPOKE TO INFORMED THAT PT REFUSING GOLYTELY. ALSO ASKED DR WHETHER EGD HAPPEN TODAY. TOLD US THAT HE IS GOING TO FOLLOW UP WITH DR. SPAULDING.
--- NOTE | 2019-10-14 06:41 | NUR ---
CLOSING NOTES ACCU-CHECK. BS OF 114. NO INSULIN COVERAGE AT THIS TIME. PT RESTING IN BED. NO S/S OF ACUTE DISTRESS NOTED AT THIS TIME. PT DENIED ANY PAIN. BREATHING IS EVEN AND UNLABORED TO 02 VIA NASAL CANNULA AT 2L. AWAITING MD TO CALL BACK REGARDING WHETHER EGD AND COLONOSCOPY WILL TAKE PLACE. SAFETY PRECAUTIONS ARE IN PLACE. LOCKED BED TO LOWEST POSITION. THREE SIDE RAILS UP. CALL LIGHT WITHIN REACH. WILL CONTINUE TO MONITOR UNTIL ENDORSED TO DAY SHIFT.
[2019-10-14 08:00] VITALS: BP_SYST 139
--- NOTE | 2019-10-14 08:00 | NUR ---
INITIAL NOTES Awake, alert and oriented, lying in bed. Denies any pain. On oxygen support via nasal cannula at 2 LPM. Denies any shortness of breath. Saline lock on left forearm intact and patent. Fall and safety precautions in place. Call light within reach. Will monitor.
[2019-10-14] MEDS ORDERED: POTASSIUM CHLORIDE 40 MEQ in 0.45% NS 250 ML IV ONE (08:15)
[2019-10-14] MEDS: PREGABALIN 75 MG CAPSULE (LYRICA) PO SCH ×2 (09:00→21:00)
--- NOTE | 2019-10-14 09:07 | NUR ---
Spoke to Dr. Valdovinos and made aware that patient is not clear and refused to drink golytely last night. cancel colonoscopy at this time.
[2019-10-14] MEDS: ENALAPRIL MALEATE (VASOTEC) Non-Formular 10 MG TABLET PO SCH (09:10)
[2019-10-14] MEDS: FOLIC ACID 1 MG TABLET PO SCH (09:11)
[2019-10-14] MEDS: NEPHROVITE, (FOLIC ACID/VITAMIN B COMP W-C 1 TAB) PO SCH (09:11)
[2019-10-14] MEDS: TAMSULOSIN HCL 0.4 MG CAP PO SCH (09:11)
[2019-10-14] MEDS: PANTOPRAZOLE SODIUM 40 MG TAB PO SCH (09:12)
[2019-10-14] MEDS: AMIODARONE HCL 200 MG TABLET PO SCH (09:12)
[2019-10-14] MEDS: BALSAM PERU/CASTOR OIL 60 GM OINT...G. TP SCH (09:15)
[2019-10-14] MEDS: amLODIPine BESYLATE 5 MG TABLET PO SCH (09:15)
--- NOTE | 2019-10-14 10:38 | NUR ---
DORA : requested by dr. Surendra Jordan for DORA at [facility]. I spoke with Kia,JULES # [phone], and faxed the order, FS ,HP, progress notes and labs to fax# [phone]. Per Kia, dr. Nolasco, director/Hydraulic Press Tender dept will be calling dr. Pao Jordan for admission screening then she will call me back for scheduling time. -- Dr. Jordan made aware. >> HERNAN Damico made aware. She authorized the ambulance transfer to and from [facility]. Addendum: 10/14/19 at 1109 by Sonali Basilio RN >> Call back from Kia: stated she spoke with dr. Pao Jordan and dr. Nolasco and provided the DORA scheduling on Friday, at 10 am. Kia made aware: the pt is R/O Covid-19 with negative testing result, stool OB and Blood culture positive. CM will confirm the admission location by Friday. -- ROMY Bahena made aware. The pt was planning for EGD/Colonoscopy today, but was cancelled d/t incomplete bowel prep. The pt is non compliance with drinking Golytely. Addendum: 10/14/19 at 1112 by Sonali Basilio RN Per dr. Surendra Contreras aware of the GI cancellation and the DORA scheduled for Friday at 10 am. at [facility].
--- NOTE | 2019-10-14 10:42 | NUR ---
MD ROUNDS Seen by Dr. Jordan and per MD he will not do DORA today.
[2019-10-14] MEDS: SOD FERRIC GLUC COMPLEX/SUC 125 MG in NS 100 ML IV SCH (11:24)
[2019-10-14 11:29] LABS: ALBUMIN 2.4
[2019-10-14 11:30] LABS: A/G RATIO 0.4; BETA GLOBULIN 4.4; GAMMA GLOBULIN 0.2; GLOBULIN, TOTAL 5.9; M-SPIKE 3.8
[2019-10-14 12:12] VITALS: BP_SYST 145
--- NOTE | 2019-10-14 13:11 | NUR ---
Nutrition F/U RD reviewed pt's current EMR record including diet Hx, physician notes, nursing notes, pertinent labs/meds/procedures, care trends, and care activity. Admission Dx: Pneumonia, COPD Pt also found w/ Acute Respiratory Failure, COPD acute exacerbation, HTN, Elevated Troponin, MANNY, Multiple Myeloma, Possible Pneumonia, Hyperglycemia, Lactic Acidosis, Transaminitis, Hyperalbuminemia, Protein-calorie malnutrition-severe. PMH: COPD, HTN, Renal Disease, Multiple Myeloma per MD notes. Pertinent Medical Info: Pt tested negative for Coronavirus PCR per EMR Current Diet Order/Nutrition Support: Clear liquid x0 days Subjective Info: Pt seen resting in bed, visually adequately-nourished for geriatric age. Pt reported that he has not had a proper meal in a few days, and has an appetite today. Pt will start on clear liquid diet at lunch. Pt denied any N/V/C/D. No special diet followed or supplement use TAX AGENT. No problems chewing/swallowing or use of dentures/partials -- adequate dentition visualized for geriatric age. Per RN, colonoscopy/EGD/DORA were cancelled today. RD encouraged pt to try to consume what he can of clear liquid diet, especially Ensure Clear ONS. Skin Integrity Comment: Darrel scale: 14; no skin breakdown per RN report Current % PO 44% average x4 meals Estimated Energy Expenditure (kcals/day) 1589-0384 kcal/day (30-35 kcal/kg CBW for COPD) Estimated Protein Required (g/day) 66gm/day (1gm/kg CBW for Renal Disease predialysis) Estimated Fluid Required (l/day) per MD (CKD/ARF) Problem/Etiology/Signs/Symptoms Altered nutrition-related labs r/t medication interaction AEB elevated BG and solu-medrol. *seemingly improved BG lab values Altered nutrition-related labs r/t renal dysfunction AEB elevated K, BUN and CRE lab values and Hx of Renal Disease. *seemingly improved renal function lab valuess Expected Outcomes/Goals Monitor appetite and PO intake w/ goal of pt meeting at least 75% of estimated nutritional needs, labs trending WNL, normal GI function, skin integrity/wt maintenance. Dietitian Recommendations * Consider advance to CCHO, renal, 60 gm protein diet if/when medically appropriate Follow Up High Risk: F/U in 2-3 days
[2019-10-14] MEDS: VORICONAZOLE 200 MG in NS 100 ML IV SCH ×2 (13:12→22:16)
--- NOTE | 2019-10-14 13:17 | NUR ---
Dietitian Recommendations * Consider advance to CCHO, renal, 60 gm protein diet if/when medically appropriate LP, RD Please refer to Nutrition F/U for details.
--- NOTE | 2019-10-14 13:30 | NUR ---
ROUNDS Seen and ecxamined by Rustam Cruz Resting in bed. Ate most of his lunch. Denies any pain or SOB. Repositioned. Bed safety alarms on. Call light within reach. Will continue to monitor.
--- NOTE | 2019-10-14 14:35 | NUR ---
PHYSICAL THERAPY CO-SIGN The Physical Therapy Progress Notes documented by Coater Hand have been reviewed. Reviewed/Co-Signed by: Luis GarrettPT Documentation Done by: EDELMIRA GARSIA PTA Addendum: 10/14/19 at 1436 by Luis Garrett PT Amended: Links added.
[2019-10-14] MEDS ORDERED: DIATR MEGLU/DIATRIZ SOD 30 ML SOLUTION PO ONE (15:00)
--- NOTE | 2019-10-14 15:00 | NUR ---
Asleep in bed. Fall and safety checks done. Call light within reach.
[2019-10-14 16:16] VITALS: BP_SYST 152
--- NOTE | 2019-10-14 16:30 | NUR ---
INSULIN REFUSED Blood sugar check with a result of 279md/dl. Patient refused to receive insulin coverage.
--- NOTE | 2019-10-14 16:55 | NUR ---
Patient was brought to CT at this time.
[2019-10-14] MEDS: INSULIN REGULAR, HUMAN 100 UNITS/ML, 10 ML VIAL (humuLIN R) SUBCUT PRN ×2 (16:57→22:23)
--- NOTE | 2019-10-14 17:20 | NUR ---
Patient came back from CT. Ensured bed safety. Repositioned. Will continue to monitor.
--- NOTE | 2019-10-14 18:24 | NUR ---
CLOSING NOTES Resting in bed. No sign of pain. Denies any shortness of breath on 2 LPM of oxygen. All needs met throughout shift. Bed in lowest position. Call light within reach. Will endorse to night nurse.
--- NOTE | 2019-10-14 19:20 | NUR ---
Opening note Received patient resting in bed, awake, no distress noted. Nonlabored breathing on 2L NC. Presently K-rider is infusing and patient is tolerating. Bed is locked in lowest position, call light w/in reach, side rails up 2x and bed alarm on. Updated board and reviewed plan of care.
[2019-10-14 20:00] VITALS: BP_SYST 134
--- NOTE | 2019-10-14 20:30 | NUR ---
IV leaking IV is no longer patent it is leaking, will need to restart new IV. Patient was repositioned - turned.
--- NOTE | 2019-10-14 21:50 | NUR ---
IV start # 22 gauge angiocath placed to LFA . Use of asceptic technique and opsite placed over site. Blood return noted. No evidence of infiltration noted. Patient tolerated . Removed IV on LAC, catheter tip visualized intact, no active bleeding.
[2019-10-14] MEDS: ATORVASTATIN 20 MG TABLET PO SCH (22:16)
--- NOTE | 2019-10-14 23:24 | NUR ---
PAGED: PAGED DR. KIDD REGARDING ORDERS USED PAGER SYSTEM
--- NOTE | 2019-10-14 23:30 | NUR ---
Dr. Ramachandran s/w Dr. Ramachandran, informed her patient is requesting a breathing tx and does not have any ordered. She provided Breathing treatment orders: Duoneb Q4H while awake, read back order.
[2019-10-15] MEDS: IPRATROPIUM/ALBUTEROL SULFATE 3 ML AMPUL.NEB (DUONEB) INH SCH ×6 (00:06→23:00)
[2019-10-15 00:14] VITALS: BP_SYST 145
[2019-10-15] MEDS: PROMETHAZINE-DM 6.25 MG-15 MG/5 ML UDC PO PRN ×2 (01:17→23:49)
[2019-10-15] MEDS: DEXAMETHASONE SOD PHOSPHATE 10 MG/ML VIAL IVP SCH ×5 (01:17→23:49)
[2019-10-15 01:24] VITALS: BP_SYST 154
--- NOTE | 2019-10-15 01:27 | NUR ---
Cough med Patient was having cough and was given Phenergan as ordered. He was repositioned and assisted w/ urinal. Safety precautions in place and call light w/in reach.
--- NOTE | 2019-10-15 03:44 | NUR ---
Breathing tx Rt providing breathing treatment.
[2019-10-15] MEDS: NAFCILLIN SODIUM 1 GM in NS 50 ML IV SCH ×4 (03:56→22:29)
[2019-10-15] MEDS: NORMAL SALINE 5 ML DISP.SYRIN IVF SCH ×6 (06:00→22:34)
[2019-10-15 06:35] LABS: ALANINE AMINOTRANSFERASE 144 U/L (12-78); ALBUMIN 1.4 g/dL (3.4-4.8); ANION GAP 16 (5-15); ASPARTATE AMINOTRANSFERASE 71 U/L (10-37); CHLORIDE 105 mmol/L (98-107); GLUCOSE 208 mg/dL (70-99); PHOSPHORUS 3.5 mg/dL (2.7-4.5); SODIUM SERUM 139 mmol/L (136-145); TOTAL BILIRUBIN 0.5 mg/dL (0.0-1.0); UREA NITROGEN, BLOOD 30 mg/dL (8-21)
[2019-10-15] MEDS: INSULIN REGULAR, HUMAN 100 UNITS/ML, 10 ML VIAL (humuLIN R) SUBCUT PRN ×4 (07:00→22:44)
[2019-10-15] MEDS: DILTIAZEM HCL 30 MG TABLET PO SCH ×3 (07:02→22:34)
[2019-10-15 07:11] LABS: CALCIUM 6.9 mg/dL (8.4-11.0)
[2019-10-15 07:19] LABS: BASOPHILS % (AUTO) 0.1 % (0.0-2.0); HEMATOCRIT 23.2 % (36-54); HEMOGLOBIN 7.7 g/dL (14.0-18.0); LYMPHOCYTES # (AUTO) 0.1 K/uL (1.0-5.5); LYMPHOCYTES % (AUTO) 3.2 % (20.5-51.5); MEAN CORPUSCULAR HEMOGLOBIN 31 pg (27-31); MEAN CORPUSCULAR HGB CONC 33 % (32-36); MEAN CORPUSCULAR VOLUME 93 fL (79.0-98.0); MONOCYTES # (AUTO) 0.1 K/uL (0.0-1.0); MONOCYTES % (AUTO) 3.1 % (1.7-9.3); NEUTROPHILS # (AUTO) 4.3 K/uL (1.8-7.7); NEUTROPHILS % (AUTO) 93.6 % (40.0-70.0); PLATELET COUNT (AUTO) 67 K/uL (130-430); RED BLOOD CELL COUNT(AUTO) 2.51 MIL/uL (4.2-6.2); RED CELL DISTRIBUTION WIDTH 16.3 % (9.0-15.0); WHITE BLOOD COUNT (AUTO) 4.6 K/uL (4.8-10.8)
--- NOTE | 2019-10-15 07:40 | NUR ---
Gerald Jordan for critical lab results.
--- NOTE | 2019-10-15 07:45 | NUR ---
called- spoke to DR. graves and made aware of labs, new order received.
--- NOTE | 2019-10-15 07:46 | NUR ---
Initial notes- In bed, awake and oriented. unable to ambulate. denies any pain, has occasional shortnes of breath. on o2 2l and routine breathing treatment. afebrile. safety precaution observed. call light within reach. Enc. to call for help as needed. will monitor.
[2019-10-15 08:00] VITALS: BP_SYST 139
[2019-10-15] MEDS: PANTOPRAZOLE SODIUM 40 MG TAB PO SCH (08:17)
[2019-10-15] MEDS: FOLIC ACID 1 MG TABLET PO SCH (08:17)
[2019-10-15] MEDS: TAMSULOSIN HCL 0.4 MG CAP PO SCH (08:17)
[2019-10-15] MEDS: NEPHROVITE, (FOLIC ACID/VITAMIN B COMP W-C 1 TAB) PO SCH (08:17)
[2019-10-15] MEDS: AMIODARONE HCL 200 MG TABLET PO SCH (08:18)
[2019-10-15] MEDS: amLODIPine BESYLATE 5 MG TABLET PO SCH (08:19)
[2019-10-15] MEDS: PREGABALIN 75 MG CAPSULE (LYRICA) PO SCH ×2 (08:20→20:43)
[2019-10-15] MEDS: BALSAM PERU/CASTOR OIL 60 GM OINT...G. TP SCH (08:20)
[2019-10-15] MEDS ORDERED: CALCIUM GLUCONATE 1 GM in NS 100 ML IV ONE (08:30)
[2019-10-15 08:32] LABS: C-REACTIVE PROTEIN QUANT 0.3 mg/dL (0-0.5)
--- NOTE | 2019-10-15 08:59 | NUR ---
MD ROUNDS Seen by Dr. Jordan and Dr. Valdovinos.
[2019-10-15] MEDS: VORICONAZOLE 200 MG in NS 100 ML IV SCH ×2 (09:15→20:43)
[2019-10-15] MEDS: ENALAPRIL MALEATE (VASOTEC) Non-Formular 10 MG TABLET PO SCH (09:17)
--- NOTE | 2019-10-15 09:55 | NUR ---
P.T. NOTES AFTER MULTIPLE ATTEMPTS PATIENTS REFUSED TO BE SEEN BY P.T., STATES NOT FEELING WELL AND UP FOR IT, EVEN REFUSED BEDSIDE ACTIVITIES, MADE RN AWARE.
[2019-10-15 10:04] LABS: ERYTHROCYTE SEDIMENTATION RATE > 140 MM/HR (0-15)
[2019-10-15] MEDS: SOD FERRIC GLUC COMPLEX/SUC 125 MG in NS 100 ML IV SCH (11:23)
--- NOTE | 2019-10-15 12:04 | NUR ---
DORA: Confirmed with dr Jordan for the transfer to [place] on Friday, the procedure time is at 10 am. -- RN myesha/ROMY Bahena made aware. Addendum: 10/15/19 at 1609 by Sonali Basilio RN >> s/w jules Beltran and bishop Herrera sup today, made aware about the transfer on Friday for DORA at 10 am. Both will call me or CN/ MST unit to give the admission details : Tele RM/dept/report number. >> RN please confirm the admitting location with warehouse stocker/[facility] # [phone] or call to the main line # [phone] and asking for the embedded case manager on duty. >> [facility] use [facility] to transfer the pt round trip. The transportation already approved by HERNAN Damico. Addendum: 10/15/19 at 1621 by Sonali Basilio RN >> Call back from JULES Powell advised the pt to be at [facility] room for registration by 830 am.-- ROMY Bahena made aware. >> CM refaxing pt's chart to fax # [phone] per Sherry request.
--- NOTE | 2019-10-15 12:30 | NUR ---
In bed, eating lunch. Denies any pain or shortness of breath. Reminded patient of upcoming DORA procedure. Expressed that he fully consents with the test. Safety precautions in place. Will continue to monitor.
[2019-10-15 12:47] VITALS: BP_SYST 126
--- NOTE | 2019-10-15 16:00 | NUR ---
Resting in bed. No change in patient status. Wound care done on healed scar on the patient's back; skin is intact. Helped patient assume a comfortable position. Safety checks done. Will continue to monitor.
[2019-10-15 16:08] VITALS: BP_SYST 130
--- NOTE | 2019-10-15 16:09 | NUR ---
LTAC order: Verified with dr. Scarlett Jordan , he plans the LTAC transfer after the DORA procedure on Friday. -- ROMY Bahena made aware.
--- NOTE | 2019-10-15 18:38 | NUR ---
CLOSING NOTES In bed, eating dinner. Denies any pain or shortness of breath on 2 lpm of oxygen. All needs met throughout shift. Safety checks done. Will endorse to night nurse.
--- NOTE | 2019-10-15 19:30 | NUR ---
Pt back from CT Chest. Stable condition.
--- NOTE | 2019-10-15 20:30 | NUR ---
Opening notes Pt AAox3, VSS, afebrile. No s/s distress noted. O2 98% on 2L via NC. IV saline lock L. FA 22 no s/s infiltration. Pt had hygiene care per INSURANCE COMMISSIONER. Call light/items within easy reach. To monitor.
[2019-10-15] MEDS: ATORVASTATIN 20 MG TABLET PO SCH (20:43)
--- NOTE | 2019-10-15 22:30 | NUR ---
BS checked Pt BS checked 352, pt refused 10 units of Reg insulin as ordered and only wants 6 units. Education provided to pt. Pt states he's been drinking ensure. To monitor.
--- NOTE | 2019-10-15 22:52 | NUR ---
Paged and spoke with RT for breathing treatment.
[2019-10-15 23:07] VITALS: BP_SYST 138
--- NOTE | 2019-10-15 23:11 | NUR ---
Nosebleed Pt had big chunk of nosebleed after he blew his nose. Per pt he had one earlier today too. Pt on O2 with Humidifier. Paged and informed Dr. Jordan. No new orders received.
--- NOTE | 2019-10-16 02:20 | NUR ---
Rounds Pt still c/o nosebleed despite interventions like pinching the nose. Encouraged pt to keep HOB elevated. Will continue to monitor pt. Call light/items within easy reach.
[2019-10-16] MEDS: IPRATROPIUM/ALBUTEROL SULFATE 3 ML AMPUL.NEB (DUONEB) INH SCH ×6 (03:38→23:00)
--- NOTE | 2019-10-16 04:40 | NUR ---
Rounds Pt asleep, respirations even and unlabored. IV L. FA 22 clear and patent. Call light/items within reach. Bed low, locked, siderails up x3. To monitor.
[2019-10-16] MEDS: NAFCILLIN SODIUM 1 GM in NS 50 ML IV SCH ×4 (04:51→22:39)
[2019-10-16] MEDS: NORMAL SALINE 5 ML DISP.SYRIN IVF SCH ×3 (06:00→21:03)
[2019-10-16] MEDS: DEXAMETHASONE SOD PHOSPHATE 10 MG/ML VIAL IVP SCH ×3 (06:27→17:57)
[2019-10-16] MEDS: DILTIAZEM HCL 30 MG TABLET PO SCH ×3 (06:35→21:02)
[2019-10-16] MEDS: INSULIN REGULAR, HUMAN 100 UNITS/ML, 10 ML VIAL (humuLIN R) SUBCUT PRN ×4 (06:39→22:02)
--- NOTE | 2019-10-16 06:42 | NUR ---
Closing notes/Accucheck Pt asleep, easily arousable, no s/s distress noted. VSS. BS checked 243, pt agreeable to 4 units of regular insulin. IV saline lock L. FA 22 clear and patent. Call light/items within easy reach. Pt states nosebleed is better when he took of oxygen. Safety maintained. Bed low, locked, siderails up x3. To monitor.
[2019-10-16 06:49] LABS: BASOPHILS % (AUTO) 0.2 % (0.0-2.0); HEMATOCRIT 22.3 % (36-54); HEMOGLOBIN 7.3 g/dL (14.0-18.0); LYMPHOCYTES # (AUTO) 0.1 K/uL (1.0-5.5); LYMPHOCYTES % (AUTO) 1.3 % (20.5-51.5); MEAN CORPUSCULAR HEMOGLOBIN 31 pg (27-31); MEAN CORPUSCULAR HGB CONC 33 % (32-36); MEAN CORPUSCULAR VOLUME 94 fL (79.0-98.0); MONOCYTES # (AUTO) 0.2 K/uL (0.0-1.0); NEUTROPHILS # (AUTO) 5.3 K/uL (1.8-7.7); NEUTROPHILS % (AUTO) 94.5 % (40.0-70.0); PLATELET COUNT (AUTO) 66 K/uL (130-430); RED BLOOD CELL COUNT(AUTO) 2.38 MIL/uL (4.2-6.2); WHITE BLOOD COUNT (AUTO) 5.6 K/uL (4.8-10.8)
[2019-10-16 07:04] LABS: ANION GAP 18 (5-15); CALCIUM 7.1 mg/dL (8.4-11.0); CHLORIDE 105 mmol/L (98-107); CREATININE 2.07 mg/dL (0.55-1.30); GLUCOSE 257 mg/dL (70-99); POTASSIUM 4.8 mmol/L (3.5-5.1); SODIUM SERUM 139 mmol/L (136-145); UREA NITROGEN, BLOOD 26 mg/dL (8-21)
--- NOTE | 2019-10-16 07:30 | NUR ---
AM ROUNDS: PATIENT ON THE BED,BREATHING TREATMENT STARTED DURING ROUNDS. CALL LIGHT WITH IN REACH. BED LOCKED AT LOWEST POSITION. NOT IN ANY RESPIRATORY DISTRESS. CONTINUE TO MONITOR.
[2019-10-16 07:55] LABS: C-REACTIVE PROTEIN QUANT < 0.2 mg/dL (0-0.5)
[2019-10-16 08:15] VITALS: BP_SYST 127
[2019-10-16] MEDS: VORICONAZOLE 200 MG in NS 100 ML IV SCH ×2 (08:23→21:01)
[2019-10-16] MEDS: PANTOPRAZOLE SODIUM 40 MG TAB PO SCH ×2 (08:23→08:57)
[2019-10-16] MEDS: AMIODARONE HCL 200 MG TABLET PO SCH ×2 (08:24→09:10)
[2019-10-16] MEDS: TAMSULOSIN HCL 0.4 MG CAP PO SCH (08:57)
[2019-10-16] MEDS: NEPHROVITE, (FOLIC ACID/VITAMIN B COMP W-C 1 TAB) PO SCH (08:57)
[2019-10-16] MEDS: FOLIC ACID 1 MG TABLET PO SCH (08:58)
[2019-10-16] MEDS: amLODIPine BESYLATE 5 MG TABLET PO SCH (08:59)
[2019-10-16] MEDS: PREGABALIN 75 MG CAPSULE (LYRICA) PO SCH ×2 (09:00→21:00)
[2019-10-16 09:07] LABS: ERYTHROCYTE SEDIMENTATION RATE > 140 MM/HR (0-15)
[2019-10-16] MEDS: SOD FERRIC GLUC COMPLEX/SUC 125 MG in NS 100 ML IV SCH (11:18)
--- NOTE | 2019-10-16 11:36 | NUR ---
Blood Sugar: Blood hnlsn=714dr/dl,Humulin R 4 units subq given per sliding scale. No problem.
[2019-10-16] MEDS: BALSAM PERU/CASTOR OIL 60 GM OINT...G. TP SCH (11:44)
[2019-10-16] MEDS: ENALAPRIL MALEATE 5 MG TABLET (VASOTEC) PO SCH (11:45)
--- NOTE | 2019-10-16 12:00 | NUR ---
Iv Infiltrated: Iv removed,dry gauze applied ,no bleeding noted. Iv re sited at left hand using g#22,continue iv iron as ordered.No problem.
[2019-10-16 12:23] LABS: COCCIDIOIDES AB COMPLEMENT FIX None Detected (NEGATIVE)
[2019-10-16 12:32] VITALS: BP_SYST 134
--- NOTE | 2019-10-16 14:30 | NUR ---
Rn rounds: Patient sleeping during rounds. No acute distress.
--- NOTE | 2019-10-16 16:00 | NUR ---
Iv Antibiotic: Due iv nafcillin given as ordered.No problem.
--- NOTE | 2019-10-16 16:35 | NUR ---
Nutrition F/U RD reviewed pt's current EMR record including diet Hx, physician notes, nursing notes, pertinent labs/meds/procedures, care trends, and care activity. Admission Dx: Pneumonia, COPD Pt also found w/ Acute Respiratory Failure, COPD acute exacerbation, HTN, Elevated Troponin, MANNY, Multiple Myeloma, Possible Pneumonia, Hyperglycemia, Lactic Acidosis, Transaminitis, Hyperalbuminemia, Protein-calorie malnutrition-severe. PMH: COPD, HTN, Renal Disease, Multiple Myeloma per MD notes. Pertinent Medical Info: Pt tested negative for Coronavirus PCR per EMR Current Diet Order/Nutrition Support: Clear liquid x1 day Subjective Info: RD called pt's primary RN who reported that pt has not been eating much, and does not care for the Ensure Clear ONS. She stated that pt has only been eating eating the gelatin. Pt has been NPO/clear liquid diet status for the past 5 days. Plans for DORA in a couple of days per physician notes. RN stated she was not sure why pt remains on clear liquid diet at this time, however, pt has also not been asking for any additional foods as pt does not seem to have an appetite. RD placed a call out to Dr. Valdovinos (expanded function dental assistant) at 1630 to inquire about diet advancement -- awaiting call back. No drastic wt changes noted per EMR. Skin Integrity Comment: Darrel scale: 16; healing scar on back per RN report Current % PO 44% average x4 meals Estimated Energy Expenditure (kcals/day) 0557-0301 kcal/day (30-35 kcal/kg CBW for COPD) Estimated Protein Required (g/day) 66gm/day (1gm/kg CBW for Renal Disease predialysis) Estimated Fluid Required (l/day) per MD (CKD/ARF) Problem/Etiology/Signs/Symptoms *modified Altered nutrition-related labs r/t medication interaction AEB elevated BG and steroid use. *ongoing Altered nutrition-related labs r/t renal dysfunction AEB elevated K, BUN and CRE lab values and Hx of Renal Disease. *seemingly stable renal function labs Expected Outcomes/Goals Monitor appetite and PO intake w/ goal of pt meeting at least 75% of estimated nutritional needs, labs trending WNL, normal GI function, skin integrity/wt maintenance. Dietitian Recommendations * Consider advance to CCHO, renal, 60 gm protein diet if/when medically appropriate Follow Up High Risk: F/U in 2-3 days
--- NOTE | 2019-10-16 16:40 | NUR ---
Dietitian Recommendations * Consider advance to CCHO, renal, 60 gm protein diet if/when medically appropriate LP, RD Please refer to Nutrition F/U for details.
[2019-10-16 16:47] VITALS: BP_SYST 135
--- NOTE | 2019-10-16 17:00 | NUR ---
Blood Sugar: Blood sugar taken,with insulin coverage given per sliding scale.No problem.
--- NOTE | 2019-10-16 18:30 | NUR ---
Closing Notes: Patient assisted during dinner. Not in any distress. Call light with in reach. Bed locked at lowest position. Condition guarded.
--- NOTE | 2019-10-16 20:00 | NUR ---
Opening notes Pt AAOx3. IV saline lock L hand 22G clear and patent. MANDREL PRESS HAND assisted pt with bedpan, had watery black stool. CAll light within reach. To monitor.
--- NOTE | 2019-10-16 20:15 | NUR ---
SOB after turning Pt c/o SOB after turning side to side using bedpan. Encouraged pt to relax and take slow deep breaths. RT placed pt on breathing treatment. O2 sat 96-98%. HOB elevated. Will continue to closely monitor.
[2019-10-16 20:25] VITALS: BP_SYST 151
[2019-10-16] MEDS: ATORVASTATIN 20 MG TABLET PO SCH (21:01)
[2019-10-16] MEDS: PROMETHAZINE-DM 6.25 MG-15 MG/5 ML UDC PO PRN (21:01)
[2019-10-17 00:04] VITALS: BP_SYST 128
--- NOTE | 2019-10-17 00:25 | NUR ---
Rounds Pt asleep, easily arousable. VSS, afebrile. IV saline lock L. hand 22G clear and patent. Call light within reach. Safety maintained, bed alarm on. To monitor.
[2019-10-17] MEDS: DEXAMETHASONE SOD PHOSPHATE 10 MG/ML VIAL IVP SCH ×5 (00:36→23:50)
--- NOTE | 2019-10-17 04:00 | NUR ---
Rounds Pt awake, assisted with urinal. Pt voided yellow urine. Call light within reach. To monitor.
[2019-10-17] MEDS: IPRATROPIUM/ALBUTEROL SULFATE 3 ML AMPUL.NEB (DUONEB) INH SCH ×6 (04:02→23:58)
[2019-10-17] MEDS: NAFCILLIN SODIUM 1 GM in NS 50 ML IV SCH ×4 (05:14→21:11)
[2019-10-17] MEDS: NORMAL SALINE 5 ML DISP.SYRIN IVF SCH ×3 (05:14→21:10)
[2019-10-17 06:18] LABS: BASOPHILS % (AUTO) 0.3 % (0.0-2.0); LYMPHOCYTES # (AUTO) 0.1 K/uL (1.0-5.5); MEAN CORPUSCULAR HEMOGLOBIN 31 pg (27-31); MEAN CORPUSCULAR HGB CONC 33 % (32-36); MEAN CORPUSCULAR VOLUME 93 fL (79.0-98.0); MONOCYTES # (AUTO) 0.2 K/uL (0.0-1.0); MONOCYTES % (AUTO) 2.6 % (1.7-9.3); NEUTROPHILS # (AUTO) 6.1 K/uL (1.8-7.7); NEUTROPHILS % (AUTO) 96.1 % (40.0-70.0); PLATELET COUNT (AUTO) 59 K/uL (130-430); RED BLOOD CELL COUNT(AUTO) 2.28 MIL/uL (4.2-6.2); RED CELL DISTRIBUTION WIDTH 17.2 % (9.0-15.0); WHITE BLOOD COUNT (AUTO) 6.3 K/uL (4.8-10.8)
[2019-10-17 06:26] LABS: ANION GAP 16 (5-15); CALCIUM 7.2 mg/dL (8.4-11.0); CHLORIDE 104 mmol/L (98-107); GLUCOSE 186 mg/dL (70-99); POTASSIUM 4.6 mmol/L (3.5-5.1); SODIUM SERUM 137 mmol/L (136-145); UREA NITROGEN, BLOOD 29 mg/dL (8-21)
[2019-10-17] MEDS: DILTIAZEM HCL 30 MG TABLET PO SCH ×3 (06:26→21:11)
[2019-10-17] MEDS: INSULIN REGULAR, HUMAN 100 UNITS/ML, 10 ML VIAL (humuLIN R) SUBCUT PRN ×4 (06:32→21:40)
--- NOTE | 2019-10-17 06:35 | NUR ---
Closing notes Pt asleep, easily arousable. VSS. No acute distress noted. O2 2L on via NC. Blood sugar checked 178, pt agreeable to 2 units Reg insulin per protocol. IV saline lock, L hand 22G no s/s of infiltration. Call light within reach. Assisted pt with urinal as needed. Safety maintained. Bed low, locked, alarm on. To endorse to AM nurse.
[2019-10-17 07:05] LABS: HEMATOCRIT 21.2 % (36-54)
[2019-10-17 07:21] LABS: C-REACTIVE PROTEIN QUANT < 0.2 mg/dL (0-0.5)
--- NOTE | 2019-10-17 07:30 | NUR ---
AM ROUNDS: PATIENT SLEEPING DURING ROUNDS. UPDATES GIVEN BY NIGHT NURSE JERMAIN. IV TO TKO AT LEFT HAND,INTACT. NOT IN ANY RESPIRATORY DISTRESS. CALL LIGHT WITH IN REACH. BED LOCKED AT LOWEST POSITION. BED ALARM ON. CONTINUE TO MONITOR.
[2019-10-17 07:55] LABS: ERYTHROCYTE SEDIMENTATION RATE > 140 MM/HR (0-15)
[2019-10-17 08:09] VITALS: BP_SYST 124
[2019-10-17] MEDS: PREGABALIN 75 MG CAPSULE (LYRICA) PO SCH ×2 (09:00→21:00)
--- NOTE | 2019-10-17 09:00 | NUR ---
MED PASS: DUE PO MEDS GIVEN. TOLERATED WELL.
[2019-10-17] MEDS: amLODIPine BESYLATE 5 MG TABLET PO SCH (09:03)
[2019-10-17] MEDS: VORICONAZOLE 200 MG in NS 100 ML IV SCH ×2 (09:03→21:08)
[2019-10-17] MEDS: TAMSULOSIN HCL 0.4 MG CAP PO SCH (09:03)
[2019-10-17] MEDS: NEPHROVITE, (FOLIC ACID/VITAMIN B COMP W-C 1 TAB) PO SCH (09:04)
[2019-10-17] MEDS: AMIODARONE HCL 200 MG TABLET PO SCH (09:04)
[2019-10-17] MEDS: FOLIC ACID 1 MG TABLET PO SCH (09:04)
[2019-10-17] MEDS: PANTOPRAZOLE SODIUM 40 MG TAB PO SCH (09:04)
[2019-10-17] MEDS: BALSAM PERU/CASTOR OIL 60 GM OINT...G. TP SCH (09:06)
[2019-10-17] MEDS: ENALAPRIL MALEATE 5 MG TABLET (VASOTEC) PO SCH (09:06)
--- NOTE | 2019-10-17 11:00 | NUR ---
IRON IV: DUE IV IRON GIVEN ORDERED,NO PROBLEM.
--- NOTE | 2019-10-17 11:45 | NUR ---
BLOOD SUGAR: BLOOD SUGAR TAKEN,WITH INSULIN COVERAGE GIVEN PER SLIDING SCALE. NO PROBLEM.
[2019-10-17] MEDS: SOD FERRIC GLUC COMPLEX/SUC 125 MG in NS 100 ML IV SCH (11:49)
[2019-10-17 12:30] VITALS: BP_SYST 131
--- NOTE | 2019-10-17 13:20 | NUR ---
BM: PATIENT HAD DARK LOOSE STOOLS IN LARGE AMOUNT AND CARE RENDERED.
--- NOTE | 2019-10-17 16:10 | NUR ---
KESHAV ROUNDS: PATIENT SEEN BY DR DIEZ. NO NEW ORDERS MADE,CONTINUE IV ANTIBIOTICS REGIMEN PER ID. Addendum: 10/17/19 at 1645 by Tete Ramos RN CORRECTED ABOVE NOTES: NOT ID PER .
[2019-10-17 16:20] VITALS: BP_SYST 138
--- NOTE | 2019-10-17 17:35 | NUR ---
BLOOD SUGAR: BLOOD SUGAR TAKEN,WITH INSULIN COVERAGE GIVEN PER SLIDING SCALE.NO PROBLEM.
--- NOTE | 2019-10-17 18:08 | NUR ---
BT INITIATION: Consent signed per agreeing to administration of blood. Blood has been type and crossmatched. Blood sent from blood bank. Information on unit of blood checked against patient wristband at bedside by two nurses. All information matches. Patient or responsible alliance party informed of potential complications associated with blood transfusion. Informed of possible transfusion reaction symptoms. Aware of need to notify nurse at once of itching, shortness of breath, flushing, feeling of impending doom, or other symptoms not previously present. Vital signs taken within 5 minutes prior to initiation of transfusion. RN will remain with patient for first 15 minutes of transfusion at which time vital signs will be re-assessed.
--- NOTE | 2019-10-17 18:49 | NUR ---
CLOSING NOTES: BLOOD TRANSFUSION STILL ON GOING. PATIENT HAVING CLEAR LIQUID THIS TIME. CALL LIGHT WITH IN REACH. BED LOCKED AT LOWEST POSITION. CONDITION GUARDED. NO ACUTE DISTRESS.
--- NOTE | 2019-10-17 19:10 | NUR ---
OPENING NOTES RECEIVE REPORT FROM ROMY HI. PATIENT AWAKE, AOX4. NO SIGNS OF RESPIRATORY DISTRESS AND DISCOMFORT NOTED. DENIES PAIN AND DISCOMFORT AT THIS TIME. ON BLOOD TRANSFUSION, INFUSING WELL, PATENCY NOTED. ON 2L OF OXYGEN VIA NASAL CANULA, ATTACHED AND SECURED, SATURATION OF 100%, RECEIVING BREATHING TREATMENT AT THIS TIME. PATIENT MADE AWARE OF THE TRANSFER TOMORROW FOR PROCEDURE, CONSENT FOR TRANSFER WAS SIGNED WELL. CALL LIGHT WITHIN REACH. PATIENT WAS EDUCATED TO USE CALL LIGHT WHEN ASSISTANCE IS NEEDED. PATIENT VERBALIZED UNDERSTANDING. BED LOCKED AND IN LOWEST POSITION. BED ALARM ON SAFETY PRECAUTIONS IN PLACE WILL CONTINUE TO MONITOR PATIENT.
[2019-10-17 20:00] VITALS: BP_SYST 149
--- NOTE | 2019-10-17 20:46 | NUR ---
BLOOD TRANSFUSION ENDED BLOOD TRANSFUSION FINISHED AT THIS TIME. NO ANY ADVERSE REACTION NOTED. PATIENT DENIES PAIN AND DISCOMFORT. VITAL SIGNS TAKEN AND RECORDED. SAFETY PRECAUTIONS IN PLACE. CALL LIGHT WITHIN REACH. WILL CONTINUE TO MONITOR PATIENT.
[2019-10-17] MEDS: ATORVASTATIN 20 MG TABLET PO SCH (21:08)
--- NOTE | 2019-10-17 21:11 | NUR ---
MED PASS/ BS 225 DUE MEDICATION GIVEN AT THIS TIME EXCEPT LYRICA, PATIENT WAS EDUCATED ON PURPOSE, BENEFITS AND SIDE EFFECT OF LYRICA, PATIENT STILL REFUSED, PATIENT VERBALIZED IT DOESN'T WORK FOR ME. PATIENT WAS EDUCATED ON PURPOSE, SIDE EFFECT AND BENEFITS OF OTHER MEDICATIONS THAT WAS TAKEN, PATIENT ABLE VERBALIZED UNDERSTANDING. BS WAS 225, 4 UNITS OF REGULAR INSULIN FOR COVERAGE, WILL INFORM MD IF OK TO GIVE SINCE PATIENT IS ON NPO EXCEPT MEDICATION. CALL LIGHT WITHIN REACH. SAFETY PRECAUTIONS IN PLACE. WILL CONTINUE TO MONITOR PATIENT.
--- NOTE | 2019-10-17 21:16 | NUR ---
CALLED [facility] I CALLED [facility] TRANSPORTATION I ARRANGED TRANSFER TO [facility] FOR DORA TOMORROW 10/18/2019 @ 0800. MILL MANAGER TOLD JAMIA TIME I PASSED THE PHONE TO HER BECAUSE MILL MANAGER HAS QUESTIONS ABOUT COVID 19
--- NOTE | 2019-10-17 21:32 | NUR ---
PAGED I PAGED DR. MURTAZA Pantoja I SPOKE WITH ABIGAIL CORTES
--- NOTE | 2019-10-17 21:39 | NUR ---
SPOKE WITH DR. MURTAZA PRASAD MADE ALCANTARA THAT PATIENT ON NPO, IF IT IS OK TO GIVE 4 UNITS OF REGULAR INSULIN WITH THE BS OF 225. MD VERBALIZED OK TO GIVE. ALSO MD MADE AWARE THAT PATIENT COMPLAINED OF HAVING A HARD TIME URINATING. MD ORDERED TO DO BLADDER SCAN AND ABOVE 500 RESIDUAL, INSERT ERAZO. BLADDER SCAN WAS DONE 37RESIDUAL OF URINE NOTED, WILL CONTINUE TO MONITOR. PATIENT WAS EDUCATED ON PURPOSE OF BLADDER SCAN AND FOR THE MD'S ORDER OF ERAZO INSERTION INCASE NEEDED, HE VERBALIZED UNDERSTANDING. CALL LIGHT WITHIN REACH. SAFETY PRECAUTIONS IN PLACE. WILL CONTINUE TO MONITOR PATIENT.
[2019-10-17 23:27] VITALS: BP_SYST 143
--- NOTE | 2019-10-17 23:50 | NUR ---
RN ROUNDS PATIENT AWAKE, NO SIGNS OF RESPIRATORY DISTRESS NOTED ON 2L OF OXYGEN VIA NASAL CANULA, ATTACHED AND SECURED, SATURATION AT 97%. DENIES PAIN AND DISCOMFORT AT THIS TIME. NEEDS ATTENDED. DUE MEDICATION WAS GIVEN AT THIS TIME WELL. PATIENT WAS EDUCATED ON PURPOSE, BENEFIT AND SIDE EFFECT OF MEDICATION, PATIENT ABLE TO VERBALIZED UNDERSTANDING. CALL LIGHT WITHIN REACH. SAFETY PRECAUTIONS IN PLACE. WILL CONTINUE TO MONITOR PATIENT.
--- NOTE | 2019-10-18 02:18 | NUR ---
RN ROUNDS PATIENT ASLEEP AT THIS TIME. NO SIGNS OF RESPIRATORY DISTRESS AND DISCOMFORT NOTED. BREATHING EVEN AND UNLABORED. ON 2L OF OXYGEN VIA NASAL CANULA ATTACHED AND SECURED. CALL LIGHT WITHIN REACH. SAFETY PRECAUTIONS IN PLACE. WILL CONTINUE TO MONITOR PATIENT.
[2019-10-18] MEDS: IPRATROPIUM/ALBUTEROL SULFATE 3 ML AMPUL.NEB (DUONEB) INH SCH ×5 (03:19→23:14)
[2019-10-18] MEDS: NAFCILLIN SODIUM 1 GM in NS 50 ML IV SCH ×4 (05:26→21:48)
[2019-10-18] MEDS: NORMAL SALINE 5 ML DISP.SYRIN IVF SCH ×3 (05:29→21:48)
[2019-10-18] MEDS: DEXAMETHASONE SOD PHOSPHATE 10 MG/ML VIAL IVP SCH (05:30)
[2019-10-18] MEDS: DILTIAZEM HCL 30 MG TABLET PO SCH ×3 (05:33→21:47)
--- NOTE | 2019-10-18 05:56 | NUR ---
[facility] CALLED: CALLED [facility] ON [phone] , TALKED WITH J LUIS , PER J LUIS [facility], RN CAN CALL BACK AFTER SHIFT CHANGE ( AFTER 7:30 am ) TO THERE ICU ON [phone] , INFORMED HIM THAT PER OUR CM NOTE PT HAS TO REPORT TO EMERGENCY ROOM FOR REGISTRATION , BUT LAYLA DINH STATED PER HIS RECORD PT WILL BE GOING TO ICU . AND HE ASKED TO CALL BACK AFTER 7:30 IN THE MORNING FOR REPORT .
--- NOTE | 2019-10-18 06:00 | NUR ---
SPOKE WITH LAYLA MCKEEMASH TUB COOKER OF [place] [facility] TO GIVE REPORT. RYLEE RICHMASH TUB COOKER VERBALIZED TO CALL THEM BACK AT 0730 AM TO GIVE REPORT.
[2019-10-18 06:26] LABS: ALANINE AMINOTRANSFERASE 114 U/L (12-78); ALBUMIN 1.5 g/dL (3.4-4.8); ANION GAP 16 (5-15); ASPARTATE AMINOTRANSFERASE 53 U/L (10-37); CHLORIDE 102 mmol/L (98-107); CREATININE 1.94 mg/dL (0.55-1.30); GLUCOSE 177 mg/dL (70-99); POTASSIUM 4.4 mmol/L (3.5-5.1); SODIUM SERUM 134 mmol/L (136-145); TOTAL BILIRUBIN 0.7 mg/dL (0.0-1.0); UREA NITROGEN, BLOOD 27 mg/dL (8-21)
--- NOTE | 2019-10-18 06:28 | NUR ---
CRITICAL LAB VALUE CRITICAL LAB VALUE OF CALCIUM 6.9. WILL INFORM
[2019-10-18 06:30] LABS: CALCIUM 6.9 mg/dL (8.4-11.0)
--- NOTE | 2019-10-18 06:32 | NUR ---
PAGED PAGED EMERY ARANGO AT [phone] SPOKE WITH MICHAEL.
[2019-10-18] MEDS ORDERED: CALCIUM GLUCONATE 1 GM/10 ML VIAL IVP ONE (06:45)
[2019-10-18 06:51] LABS: C-REACTIVE PROTEIN QUANT < 0.2 mg/dL (0-0.5)
[2019-10-18] MEDS ORDERED: CALCIUM GLUCONATE 1 GM/10 ML VIAL ONE (07:10)
--- NOTE | 2019-10-18 07:17 | NUR ---
2ND PAGE OUT TO EMERY MORELAND AT [phone] SPOKE WITH MELINA.
[2019-10-18 07:27] LABS: BASOPHILS % (AUTO) 0.2 % (0.0-2.0); HEMATOCRIT 23.8 % (36-54); HEMOGLOBIN 7.8 g/dL (14.0-18.0); LYMPHOCYTES # (AUTO) 0.1 K/uL (1.0-5.5); LYMPHOCYTES % (AUTO) 0.8 % (20.5-51.5); MEAN CORPUSCULAR HEMOGLOBIN 30 pg (27-31); MEAN CORPUSCULAR HGB CONC 33 % (32-36); MEAN CORPUSCULAR VOLUME 92 fL (79.0-98.0); MONOCYTES # (AUTO) 0.1 K/uL (0.0-1.0); MONOCYTES % (AUTO) 1.6 % (1.7-9.3); NEUTROPHILS # (AUTO) 7.9 K/uL (1.8-7.7); NEUTROPHILS % (AUTO) 97.4 % (40.0-70.0); RED BLOOD CELL COUNT(AUTO) 2.58 MIL/uL (4.2-6.2); RED CELL DISTRIBUTION WIDTH 17.1 % (9.0-15.0)
[2019-10-18] MEDS ORDERED: CALCIUM GLUCONATE 1 GM in NS 50 ML IV ONE (07:30)
--- NOTE | 2019-10-18 07:30 | NUR ---
SPOKE WITH RYLEE DINH OF [facility] CALLED [facility] TO GIVE REPORT, PATIENT NEEDS TO BE TRANSFER TO [facility] FOR DORA PROCEDURE. RYLEE VERBALIZED THAT THEY CANT RECEIVE REPORT BECAUSE THEY DON'T HAVE ENOUGH NURSE TO TAKE THE PATIENT. WILL INFORM .
--- NOTE | 2019-10-18 07:30 | NUR ---
INITIAL NOTE PT RESTING IN BED, ON 2L NC TOLERATING WELL. BREATHING EVEN AND UNLABORED. CALCIUM GLUCONATE INFUSING AT THIS TIME. SCD'S IN PLACE. CALL LIGHT WITHIN REACH, BED IN LOW AND LOCKED POSITION WITH BED ALARM ON.
--- NOTE | 2019-10-18 07:35 | NUR ---
INITIAL NOTE PT RESTING QUIETLY IN BED, BREATHING EVEN AND UNLABORED, PT ON 1 LITER NC TOLERATING WELL. IV CALCIUM GLUCONATE INFUSING WELL. SCD'S OFF AT THIS TIME. CALL LIGHT WITHIN REACH, BED IN LOW AND LOCKED POSITION WITH BED ALARM ON.
--- NOTE | 2019-10-18 07:45 | NUR ---
REINA CALLED: PRIMARY RN JAMIA CALLED [facility] TO GIVE REPORT ,THEY REFUSED TO TAKE PT , PRIMARY RN ASKED CHARGE NURSE TO TALK WITH THE HOUSE SUP , I TALKED WITH FUNCTIONAL ANALYST , J LUIS , HE SAID HE CANNOT TAKE PT , BECAUSE HE DONT HAVE ANY STAFFING FOR TODAY TO ACCEPT THE PT TO ICU . HOUSE SUP FROM [facility] STATED HE WILL NOTIFY RUDI , WE WILL CALL A DANNIAL AND WILL NOTIFY .
[2019-10-18 07:46] LABS: WHITE BLOOD COUNT (AUTO) 8.1 K/uL (4.8-10.8)
--- NOTE | 2019-10-18 07:49 | NUR ---
PAGED PAGED EMERY KAUFFMAN AT [phone] JAMEE GUAMAN.
--- NOTE | 2019-10-18 07:56 | NUR ---
[facility] CALLED CALLED [facility] AT [phone] SPOKE WITH NIKKIE TO PUT THE PATIENT ON WILL CALL.
[2019-10-18 08:00] VITALS: BP_SYST 133
--- NOTE | 2019-10-18 08:24 | NUR ---
SPOKE WITH ROMY SMITH OF OR [facility] REPORT GIVEN TO ROMY SMITH MADE AWARE THAT PATIENT SUPPOSED TO BE IN [facility] AT 8:30 and [facility] PROCEDURE IS SCHEDULED AT 10:00AM. WILL CALL TRANSPORT SOON POSSIBLE. NOTE: REPORT WAS GIVEN DELAY DUE NO NURSE FROM [facility] CAN TAKE REPORT. RN START CALLING THEM AT 0730 10/18/19 PER JANUR OF TRACER CLERK, THEY DON'T HAVE ENOUGH NURSE TO RECEIVE REPORT.
[2019-10-18 08:25] LABS: ERYTHROCYTE SEDIMENTATION RATE > 140 MM/HR (0-15)
--- NOTE | 2019-10-18 08:33 | NUR ---
CLOSING NOTES PATIENT AWAKE, AOX4. NO SIGNS OF RESPIRATORY DISTRESS AND DISCOMFORT NOTED. DENIES PAIN AND DISCOMFORT AT THIS TIME. IV SITE, PATENCY NOTED. ON 2L OF OXYGEN VIA NASAL CANULA, ATTACHED AND SECURED, SATURATION OF 98%. CALL LIGHT WITHIN REACH. BED LOCKED AND IN LOWEST POSITION. BED ALARM ON. SAFETY PRECAUTIONS IN PLACE. ALL NEEDS MET THROUGHOUT THE SHIFT. ENDORSE TO ROMY LOPEZ.
[2019-10-18] MEDS: ENALAPRIL MALEATE 5 MG TABLET (VASOTEC) PO SCH (09:00)
[2019-10-18] MEDS: FOLIC ACID 1 MG TABLET PO SCH (09:00)
[2019-10-18] MEDS: TAMSULOSIN HCL 0.4 MG CAP PO SCH (09:00)
[2019-10-18] MEDS: PANTOPRAZOLE SODIUM 40 MG TAB PO SCH (09:00)
[2019-10-18] MEDS: AMIODARONE HCL 200 MG TABLET PO SCH (09:00)
[2019-10-18] MEDS: NEPHROVITE, (FOLIC ACID/VITAMIN B COMP W-C 1 TAB) PO SCH (09:00)
[2019-10-18] MEDS: amLODIPine BESYLATE 5 MG TABLET PO SCH (09:00)
[2019-10-18] MEDS: PREGABALIN 75 MG CAPSULE (LYRICA) PO SCH ×2 (09:00→20:30)
--- NOTE | 2019-10-18 09:30 | NUR ---
RN ROUNDS IV MEDICATIONS ADMINISTERED. INFORMED PT THAT [facility] TIME IS AT 10:30AM.
[2019-10-18] MEDS: VORICONAZOLE 200 MG in NS 100 ML IV SCH ×2 (09:35→20:30)
[2019-10-18] MEDS: BALSAM PERU/CASTOR OIL 60 GM OINT...G. TP SCH (09:36)
--- NOTE | 2019-10-18 09:52 | NUR ---
P.T. NOTES PATIENT REFUSED TO BE SEEN BY P.T. AT THIS TIME, STATES WILL BE HAVING A PROCEDURE.
--- NOTE | 2019-10-18 10:09 | NUR ---
[facility] SPOKE WITH ROMY FINNEY FROM OR. INFORMED RN THAT THE [facility] PICK WILL BE DELAYED. NEW MANAGER PROTEIN TIME FOR 11:30. RN CONFIRMED.
--- NOTE | 2019-10-18 10:12 | NUR ---
[facility]-STRETCHING MACHINE TENDER FRAME FROM [facility] SPOKE WITH NIKKIE FROM [facility], AMBULANCE WILL STRETCHING MACHINE TENDER FRAME PT AT 11:30AM AND TAKE PT TO [facility] WHERE THEY WILL WAIT UNTIL PT IS DONE WITH PROCEDURE AT 1:30PM. PT WILL THEN BE BROUGHT BACK BY [facility]BULANCE TO [facility] TO ROOM 100B.
[2019-10-18 10:17] LABS: PLATELET COUNT (AUTO) 60 K/uL (130-430)
--- NOTE | 2019-10-18 11:15 | NUR ---
Discharge Planning: DCP faxed Sharon greer [place] (f [phone] p [phone]) pt referral. DCP to follow up. Addendum: 10/18/19 at 1634 by Sherry Chacon DP Sharon greer [facility] (f [phone] p [phone]) accepted [facility], will give room when there is a DC order.
[2019-10-18] MEDS: SOD FERRIC GLUC COMPLEX/SUC 125 MG in NS 100 ML IV SCH (11:25)
[2019-10-18] MEDS: INSULIN REGULAR, HUMAN 100 UNITS/ML, 10 ML VIAL (humuLIN R) SUBCUT PRN (11:26)
--- NOTE | 2019-10-18 11:28 | NUR ---
Pao HAUSER INFORMED MD PRIEST TIME WILL BE AT 1130 PER AMBULANCE RUNNING LATE. INFORMED MD THAT PT BSG 186. NEW ORDERS RECEIVED TO HOLD INSULIN COVERAGE AT THIS TIME. VERIFIED WITH READ BACK.
--- NOTE | 2019-10-18 11:38 | NUR ---
AMBULANCE PICK PACKET GIVEN TO [facility]. PT AWAKE, DENIES ANY PAIN OR DISCOMFORT. PT WILL BE RETURNING BACK TO [facility] AFTER PROCEDURE IS DONE.
[2019-10-18] MEDS: LORazepam 2 MG/ML VIAL IVP PRN ×2 (11:57→21:52)
--- NOTE | 2019-10-18 11:57 | NUR ---
ATIVAN PT ANXIOUS AT THIS TIME. BP ELEVATED. ADMINISTERED PRN ATIVAN FOR ANXIOUSNESS. PT WAS ABLE TO CALM DOWN AND AMBULANCE TO TAKE PT. PT DENIES ANY DISCOMFORT AT THIS TIME.
[2019-10-18 12:15] VITALS: BP_SYST 138
--- NOTE | 2019-10-18 12:32 | NUR ---
DC Planning: Re: ambulance [facility]. [facility] is to drop off the pt. at [facility] and [facility] to pickle processor and bring the pt back [facility] after D[facility]A. [facility] is on Will Call. JULES Cronin at [facility] will call [facility] # [phone] when pt is ready for pickle processor. The pt will in recovery room post procedure. Ambulance arrangement detail: >> s/w Rad/Medic 1: the booking is to pickle processor and drop off only. >> I booked the pickle processor with Ronald dispatcher /[facility] contracted rate of $383 ALS transfer from [facility]. HERNAN Damico made aware. Addendum: 10/18/19 at 1531 by Sonali Basilio RN Late entry: 1330 received call from JULES Cronin at [facility] said [facility] could not pickle processor the pt due to out of their area. I called back to Ronald who apologized for given service. He did not realize the area. He confirmed unable to pickle processor the pt from [facility]. I called [facility] and got the trip quotation from [place] to [facility] is 2013.60 plus supplies plus night rate , excluding hospital contracted rate if applied ( [facility] is contracted with [facility] per Mehrdad). I notified Margaux, she was in meeting but will call me back with her decision. Addendum: 10/18/19 at 1719 by Sonali Basilio RN 1545: f/w with Yeimi bray She authorized for [facility] to bring pt back to [facility] Addendum: 10/18/19 at 1732 by Sonali Basilio RN 1600 : s/w Noir,animal control supervisor at [facility] , booking the ambulance cost is $1,900.61 with upfront payment via credit card. Meanwhile , I received call from Jessica/[facility] stated that dr. Jordan okayed for non medical transportation transfer back. I called dr. Jordan: he confirmed, " may transport pt via non medical transportation back [facility], stated the DORA testing result is negative. It is ok." >> Booked with [facility] # [phone] , given pickle processor time at 1930, cost $130 from [facility] room 107 to [facility] room 100B. -- PAUL Ibrahim at [facility] and PAUL Amos made aware. Also LVM to June with the above information.
--- NOTE | 2019-10-18 17:08 | NUR ---
NO BSG CHECK AT THIS TIME, PT STILL AT [facility]
--- NOTE | 2019-10-18 18:53 | NUR ---
CLOSING NOTE/REINA SPOKE WITH AUTOMOTIVE MANAGER FABIENNE FROM [place]. PT WILL BE PICKED UP FROM [place] BY [facility] AT 7:30PM AND BROUGHT TO [facility] TO ROOM 100B. ALL NEEDS MET THROUGH OUT SHIFT. WILL CONTINUE TO ENDORSE PT CARE TO SAT MATH TUTOR RN.
[2019-10-18 20:00] VITALS: BP_SYST 136
--- NOTE | 2019-10-18 20:04 | NUR ---
PATIENT BACK ON UNIT PATIENT BIBA VIA GUERNY, PATIENT IS RESTING IN BED, NO SIGNS OF ACUTE DISTRESS, AA/OX4, NO COMPLAINTS OF PAIN, EVEN AND UNLABORED BREATHING ON 2L NC, IV TO LEFT FA IN PLACE AND SALINE LOCKED, PATENT/BENIGN. SAFETY AND FALL PRECAUTIONS IN PLACE, BED LOCKED AND IN LOWEST POSITION, BED ALARM ON, THREE SIDE RAILS UP, CALL LIGHT WITH PATIENT, WILL CONTINUE TO MONITOR.
--- NOTE | 2019-10-18 20:28 | NUR ---
BLOOD SUGAR PATIENT'S BLOOD SUGAR IS 129. NO INSULIN COVERAGE INDICATED PER INSULIN SLIDING SCALE AT THIS TIME. SAFETY AND FALL PRECAUTIONS IN PLACE, CALL LIGHT WITH PATIENT, WILL CONTINUE TO MONITOR.
[2019-10-18] MEDS: ATORVASTATIN 20 MG TABLET PO SCH (20:29)
--- NOTE | 2019-10-18 21:17 | NUR ---
SPOKE WITH MD SPOKE WITH DR. MURTAZA Easton OVER THE PHONE REGARDING PATIENT'S STATUS AND DIET ORDER. MD GAVE NEW ORDERS TO CONTINUE PATIENT'S DIET OF [facility], [place]. ORDERS CONFIRMED AND VERIFIED BY READ-BACK, RN TO INPUT.
--- NOTE | 2019-10-18 21:52 | NUR ---
ANXIETY PATIENT COMPLAINS OF INCREASED ANXIETY. PRN ATIVAN 1MG IVP INDICATED FOR ANXIETY. EDUCATED PATIENT ON MEDICATION USES AND POTENTIAL SIDE EFFECTS, PATIENT ABLE TO VERBALIZE UNDERSTANDING. ADMINISTERED MEDICATION PER MD ORDER, PATIENT TOLERATED WELL. SAFETY AND FALL PRECAUTIONS IN PLACE, CALL LIGHT WITH PATIENT, WILL CONTINUE TO MONITOR.
--- NOTE | 2019-10-18 23:05 | NUR ---
RN ROUNDS PATIENT IS RESTING IN BED, EYES CLOSED, NO SIGNS OF ACUTE DISTRESS, TOLERATING 2L NC, IV TO LEFT FA IN PLACE AND SALINE LOCKED, PATENT/BENIGN. SAFETY AND FALL PRECAUTIONS IN PLACE, BED LOCKED AND IN LOWEST POSITION, BED ALARM ON, THREE SIDE RAILS UP, CALL LIGHT WITH PATIENT, WILL CONTINUE TO MONITOR.
[2019-10-18 23:14] VITALS: BP_SYST 143
--- NOTE | 2019-10-19 01:43 | NUR ---
RN ROUNDS PATIENT IS RESTING IN BED, EYES CLOSED, TOLERATING 2L NC, IV TO LEFT FA SALINE LOCKED, PATENT/BENIGN, NO SIGNS OF ACUTE DISTRESS. SAFETY AND FALL PRECAUTIONS IN PLACE, CALL LIGHT WITH PATIENT, WILL CONTINUE TO MONITOR.
[2019-10-19] MEDS: IPRATROPIUM/ALBUTEROL SULFATE 3 ML AMPUL.NEB (DUONEB) INH SCH ×6 (03:09→23:24)
--- NOTE | 2019-10-19 03:45 | NUR ---
RN ROUNDS PATIENT IS RESTING IN BED, EYES CLOSED, TOLERATING 1L NC, HUNG SCHEDULED ANTIBIOTIC, IV TO LEFT HAND INFUSING WELL, PATENT/BENIGN, NO SIGNS OF ACUTE DISTRESS. SAFETY AND FALL PRECAUTIONS IN PLACE, CALL LIGHT WITH PATIENT, WILL CONTINUE TO MONITOR.
[2019-10-19] MEDS: NAFCILLIN SODIUM 1 GM in NS 50 ML IV SCH ×4 (03:46→21:05)
[2019-10-19] MEDS: NORMAL SALINE 5 ML DISP.SYRIN IVF SCH ×3 (05:49→21:05)
[2019-10-19] MEDS: DILTIAZEM HCL 30 MG TABLET PO SCH ×3 (05:49→21:05)
--- NOTE | 2019-10-19 06:01 | NUR ---
BLOOD SUGAR/RN ROUNDS PATIENT'S BLOOD SUGAR IS 90. NO INSULIN COVERAGE INDICATED PER INSULIN SLIDING SCALE AT THIS TIME, PATIENT RESTING IN BED, AWAKE, NO COMPLAINTS OF PAIN, TOLERATING 1L NC, IV TO LEFT HAND PATENT/BENIGN, ASSISTED PATIENT WITH URINAL AND EMPTIED 300CC OF YELLOW URINE. SAFETY AND FALL PRECAUTIONS IN PLACE, CALL LIGHT WITH PATIENT, WILL CONTINUE TO MONITOR.
--- NOTE | 2019-10-19 06:34 | NUR ---
CLOSING NOTE PATIENT IS RESTING IN BED, EYES CLOSED, NO SIGNS OF ACUTE DISTRESS, TOLERATING 1L NC, IV TO LEFT HAND SALINE LOCKED, PATENT/BENIGN, NO COMPLAINTS OF PAIN. SAFETY AND FALL PRECAUTIONS IN PLACE, BED LOCKED AND IN LOWEST POSITION, BED ALARM ON, TWO SIDE RAILS UP, CALL LIGHT WITH PATIENT, WILL ENDORSE CARE TO DAYSHIFT RN.
[2019-10-19 06:54] LABS: BASOPHILS % (AUTO) 0.3 % (0.0-2.0); HEMATOCRIT 24.4 % (36-54); LYMPHOCYTES # (AUTO) 0.1 K/uL (1.0-5.5); LYMPHOCYTES % (AUTO) 1.8 % (20.5-51.5); MEAN CORPUSCULAR HEMOGLOBIN 30 pg (27-31); MEAN CORPUSCULAR HGB CONC 33 % (32-36); MEAN CORPUSCULAR VOLUME 93 fL (79.0-98.0); MONOCYTES # (AUTO) 0.2 K/uL (0.0-1.0); MONOCYTES % (AUTO) 2.8 % (1.7-9.3); NEUTROPHILS # (AUTO) 5.1 K/uL (1.8-7.7); NEUTROPHILS % (AUTO) 95.1 % (40.0-70.0); RED BLOOD CELL COUNT(AUTO) 2.64 MIL/uL (4.2-6.2); RED CELL DISTRIBUTION WIDTH 17.3 % (9.0-15.0)
[2019-10-19 07:11] LABS: WHITE BLOOD COUNT (AUTO) 5.4 K/uL (4.8-10.8)
--- NOTE | 2019-10-19 07:20 | NUR ---
INITIAL NOTE PT RESTING IN BED, RECEIVING BREATHING TREATMENT. PT TOLERATING WELL. BREATHING EVEN AND UNLABORED. IV SALINE LOCKED. CALL LIGHT WITHIN REACH, BED IN LOW AND LOCKED POSITION WITH BED ALARM ON.
[2019-10-19 08:00] VITALS: BP_SYST 140
[2019-10-19 08:01] LABS: PLATELET COUNT (AUTO) 58 K/uL (130-430)
--- NOTE | 2019-10-19 08:18 | NUR ---
ANXIOUSNESS/DR. HAUSER SPOKE WITH MD VIA PHONE, INFORMED MD THAT PT STATES HE IS HAVING A PANIC ATTACK AND FEELING ANXIOUS. NEW ORDERS RECEIVED FOR ONE TIME DOSE OF ATIVAN 1MG IVP, VERIFIED WITH READ BACK.
[2019-10-19] MEDS ORDERED: LORazepam 2 MG/ML VIAL IV ONE ×2 (08:30→09:45)
[2019-10-19] MEDS: NEPHROVITE, (FOLIC ACID/VITAMIN B COMP W-C 1 TAB) PO SCH (08:49)
[2019-10-19] MEDS: FOLIC ACID 1 MG TABLET PO SCH (08:49)
[2019-10-19] MEDS: BALSAM PERU/CASTOR OIL 60 GM OINT...G. TP SCH (08:49)
[2019-10-19] MEDS: PANTOPRAZOLE SODIUM 40 MG TAB PO SCH (08:49)
[2019-10-19] MEDS: VORICONAZOLE 200 MG in NS 100 ML IV SCH ×2 (08:49→20:54)
[2019-10-19] MEDS: TAMSULOSIN HCL 0.4 MG CAP PO SCH (08:50)
[2019-10-19] MEDS: PREGABALIN 75 MG CAPSULE (LYRICA) PO SCH ×2 (08:50→20:55)
[2019-10-19] MEDS: AMIODARONE HCL 200 MG TABLET PO SCH (08:50)
[2019-10-19] MEDS: amLODIPine BESYLATE 5 MG TABLET PO SCH (08:50)
[2019-10-19] MEDS: ENALAPRIL MALEATE 5 MG TABLET (VASOTEC) PO SCH (08:51)
--- NOTE | 2019-10-19 10:00 | NUR ---
ATIVAN PT WOKE FROM NAP COMPLAINING OF ANXIOUSNESS AND RESTLESSNESS. VSS. ONE TIME DOSE OF ATIVAN ADMINISTERED, PT TOLERATED WELL. WILL CONTINUE TO MONITOR.
[2019-10-19] MEDS: SOD FERRIC GLUC COMPLEX/SUC 125 MG in NS 100 ML IV SCH (11:20)
--- NOTE | 2019-10-19 11:26 | NUR ---
BSG 77 EDUCATED PT DRINK JUICE AND EAT CRACKERS. PT VERBALIZED UNDERSTANDING. PT WILL WAIT FOR LUNCH TO EAT.
[2019-10-19 13:17] VITALS: BP_SYST 126
--- NOTE | 2019-10-19 13:30 | NUR ---
RN ROUNDS PT RESTING IN BED, NO ACUTE DISTRESS NOTED, BREATHING EVEN AND UNLABORED. WILL CONTINUE TO MONITOR.
--- NOTE | 2019-10-19 14:19 | NUR ---
Nutrition F/U RD reviewed pt's current EMR record including diet Hx, physician notes, nursing notes, pertinent labs/meds/procedures, care trends, and care activity. Admission Dx: Pneumonia, COPD Pt also found w/ Acute Respiratory Failure, COPD acute exacerbation, HTN, Elevated Troponin, MANNY, Multiple Myeloma, Possible Pneumonia, Hyperglycemia, Lactic Acidosis, Transaminitis, Hyperalbuminemia, Protein-calorie malnutrition-severe. PMH: COPD, HTN, Renal Disease, Multiple Myeloma per MD notes. Pertinent Medical Info: Pt tested negative for Coronavirus PCR per EMR Current Diet Order/Nutrition Support: CCHO, 2 gm K, renal x0 days Subjective Info: RD called pt's room earlier today, and PHOTO TUBE ASSEMBLER answered. PHOTO TUBE ASSEMBLER reported that pt has not been eating well, refusaed breakfast, and was not eating much of lunch of which she was assisting pt w/ at time of RD phone call. RD offered ONS -- pt agreeable to chocolate-flavored diabetic-friendly ONS. Pt is not meeting nutritional needs, and appetite seems to have decreased since last RD F/U 10/16/19. No drastic wt changes noted per EMR. Skin Integrity Comment: Darrel scale: 16; posterior upper back w/ wound per EMR Current % PO 20% average x3 meals Estimated Energy Expenditure (kcals/day) [id number] kcal/day (30-35 kcal/kg CBW for COPD) Estimated Protein Required (g/day) 66gm/day (1gm/kg CBW for Renal Disease predialysis) Estimated Fluid Required (l/day) per MD (CKD/ARF) Problem/Etiology/Signs/Symptoms *modified Altered nutrition-related labs r/t medication interaction AEB elevated BG and steroid use. *ongoing Altered nutrition-related labs r/t renal dysfunction AEB elevated K, BUN and CRE lab values and Hx of Renal Disease. *seemingly stable/improving renal function labs Expected Outcomes/Goals Monitor appetite and PO intake w/ goal of pt meeting at least 75% of estimated nutritional needs, labs trending WNL, normal GI function, skin integrity/wt maintenance. Dietitian Recommendations * Recommend CCHO, renal, 60 gm protein diet w/ Glucerna TID (ONS provides 660 kcal/day, 30 gm protein/day) Follow Up High Risk: F/U in 2-3 days
--- NOTE | 2019-10-19 14:26 | NUR ---
Dietitian Recommendations * Recommend CCHO, renal, 60 gm protein diet w/ Glucerna TID (ONS provides 660 kcal/day, 30 gm protein/day) LP, RD Please refer to Nutrition F/U for details.
--- NOTE | 2019-10-19 16:28 | NUR ---
[facility] transfer: I spoke with pt's spouse Kaylee about [facility] for continuation of care. Kaylee is agreeable with the possible transfer tonight. -- ROMY Li made aware.
--- NOTE | 2019-10-19 17:00 | NUR ---
BSG 92 ENCOURAGED PT TO DRINK APPLE JUICE TO INCREASE BSG. PT VERBALIZED UNDERSTANDING, APPLE JUICE GIVEN TO PT. PT REFUSED CRACKERS. WILL CONTINUE TO MONITOR.
[2019-10-19 17:01] VITALS: BP_SYST 119
--- NOTE | 2019-10-19 17:40 | NUR ---
REFUSED TRANSFER TO [place]/DR. HAUSER SPOKE DR. HAUSER VIA PHONE. INFORMED MD THAT PT AND PT'S TAHIR ARE NOT AGREEABLE WITH THE TRANSFER TO [place] AND WOULD PREFER THAT THE PT BE SENT TO [facility]. MD AWARE THAT PT WILL NOT BE LEAVING TONIGHT FOR [place]. THIS INFORMATION WILL BE ENDORSED TO THE NEXT SHIFT TO BE PASSED ON TO [facility] IN THE MORNING.
--- NOTE | 2019-10-19 19:00 | NUR ---
CLOSING NOTE PT RESTING IN BED, NO ACUTE DISTRESS NOTED. BREATHING EVEN AND UNLABORED. 2L NC TOLERATING WELL. IV SALINE LOCKED. CALL LIGHT WITHIN REACH, BED IN LOW AND LOCKED POSITION WITH BED ALARM ON. ALL NEEDS MET THROUGHOUT SHIFT. PT CARE ENDORSED TO PEANUT BLANCHER RNKAMINI. ENDORSED TO NEXT SHIFT, PATIENT REFUSED TO GO TO [facility] TODAY AND WOULD LIKE TO GO TO [facility], PT INFORMED THAT [facility] WILL BE NOTIFIED TOMORROW WHEN THEY ARE HERE.
--- NOTE | 2019-10-19 19:37 | NUR ---
OPENING NOTE RECEIVED REPORT FROM DAYSVELASQUEZFT RN, PATIENT IS RESTING IN BED, EYES CLOSED, NO SIGNS OF ACUTE DISTRESS, TOLERATING 2L NC, IV TO LEFT HAND SALINE LOCKED, PATENT/BENIGN, NO COMPLAINTS OF PAIN. SAFETY AND FALL PRECAUTIONS IN PLACE, BED LOCKED AND IN LOWEST POSITION, BED ALARM ON, THREE SIDE RAILS UP, CALL LIGHT WITH PATIENT, WILL CONTINUE TO MONITOR.
[2019-10-19 20:00] VITALS: BP_SYST 130
[2019-10-19] MEDS: ATORVASTATIN 20 MG TABLET PO SCH (20:54)
--- NOTE | 2019-10-19 20:59 | NUR ---
BLOOD SUGAR PATIENT'S BLOOD SUGAR IS 92. NO INSULIN COVERAGE INDICATED PER INSULIN SLIDING SCALE AT THIS TIME. SAFETY AND FALL PRECAUTIONS IN PLACE, CALL LIGHT WITH PATIENT, WILL CONTINUE TO MONITOR.
--- NOTE | 2019-10-19 22:07 | NUR ---
PAIN PATIENT COMPLAINS OF GENERALIZED PAIN AND INCREASED ANXIETY. PRN TYLENOL 650MG PO INDICATED FOR MILD PAIN, EDUCATED PATIENT ON MEDICATION USES AND POTENTIAL SIDE EFFECTS, PATIENT ABLE TO VERBALIZE UNDERSTANDING, ADMINISTERED MEDICATION PER MD ORDER, PATIENT TOLERATED WELL. SAFETY AND FALL PRECAUTIONS IN PLACE, CALL LIGHT WITH PATIENT WILL CONTINUE TO MONITOR.
--- NOTE | 2019-10-19 22:17 | NUR ---
ANXIOUSNESS/ SPOKE WITH MD SPOKE WITH DR. HAUSER OVER THE PHONE, INFORMED MD THAT PATIENT STATES HE IS HAVING A PANIC ATTACK AND FEELING VERY ANXIOUS. NEW ORDERS RECEIVED FOR ATIVAN 1MG PO Q4PRN, ORDERS CONFIRMED AND VERIFIED WITH READ-BACK.
[2019-10-19] MEDS ORDERED: LORazepam 1 MG TABLET PO PRN (22:30)
--- NOTE | 2019-10-19 22:32 | NUR ---
ANXIOUSNESS PATIENT COMPLAINS OF INCREASED ANXIETY AND STATES HE IS HAVING A PANIC ATTACK. PRN ATIVAN 1MG PO INDICATED FOR ANXIOUSNESS AND ANXIETY, EDUCATED PATIENT ON MEDICATION USES AND POTENTIAL SIDE EFFECTS, PATIENT ABLE TO VERBALIZE UNDERSTANDING, ADMINISTERED MEDICATION PER MD ORDER, PATIENT TOLERATED WELL. SAFETY AND FALL PRECAUTIONS IN PLACE, CALL LIGHT WITH PATIENT WILL CONTINUE TO MONITOR.
--- NOTE | 2019-10-20 00:40 | NUR ---
RN ROUNDS PATIENT IS RESTING IN BED, EYES CLOSED, TOLERATING 2L NC, NO SIGNS OF ACUTE DISTRESS, IV TO LEFT HAND SALINE LOCKED, PATENT/BENIGN, NO COMPLAINTS OF PAIN. SAFETY AND FALL PRECAUTIONS IN PLACE, BED LOCKED AND IN LOWEST POSITION, BED ALARM ON, THREE SIDE RAILS UP, CALL LIGHT WITH PATIENT, WILL CONTINUE TO MONITOR.
[2019-10-20 00:53] VITALS: BP_SYST 136
--- NOTE | 2019-10-20 02:12 | NUR ---
RN ROUNDS PATIENT IS RESTING IN BED, EYES CLOSED, TOLERATING 2L NC, IV TO LEFT HAND SALINE LOCKED, PATENT/BENIGN, NO SIGNS OF ACUTE DISTRESS. SAFETY AND FALL PRECAUTIONS IN PLACE, CALL LIGHT WITH PATIENT, WILL CONTINUE TO MONITOR.
[2019-10-20] MEDS: IPRATROPIUM/ALBUTEROL SULFATE 3 ML AMPUL.NEB (DUONEB) INH SCH ×6 (03:00→22:54)
[2019-10-20] MEDS: NAFCILLIN SODIUM 1 GM in NS 50 ML IV SCH ×3 (03:54→21:50)
--- NOTE | 2019-10-20 04:01 | NUR ---
RN ROUNDS PATIENT IS RESTING IN BED, EYES CLOSED, TOLERATING 2L NC, HUNG SCHEDULED ANTIBIOTIC, IV TO LEFT HAND INFUSING WELL, PATENT/BENIGN, NO SIGNS OF ACUTE DISTRESS. SAFETY AND FALL PRECAUTIONS IN PLACE, CALL LIGHT WITH PATIENT, WILL CONTINUE TO MONITOR.
[2019-10-20] MEDS: NORMAL SALINE 5 ML DISP.SYRIN IVF SCH ×3 (04:59→21:58)
[2019-10-20] MEDS: DILTIAZEM HCL 30 MG TABLET PO SCH ×3 (05:00→22:00)
--- NOTE | 2019-10-20 06:30 | NUR ---
BLOOD SUGAR PATIENT'S BLOOD SUGAR IS 81. NO INSULIN COVERAGE INDICATED PER INSULIN SLIDING SCALE AT THIS TIME, GAVE PATIENT APPLE JUICE AND ORANGE JUICE. SAFETY AND FALL PRECAUTIONS IN PLACE, CALL LIGHT WITH PATIENT, WILL CONTINUE TO MONITOR.
--- NOTE | 2019-10-20 06:40 | NUR ---
CLOSING NOTE PATIENT IS RESTING IN BED, EYES CLOSED, NO SIGNS OF ACUTE DISTRESS, TOLERATING 2L NC, IV TO LEFT HAND SALINE LOCKED, PATENT/BENIGN, NO COMPLAINTS OF PAIN. SAFETY AND FALL PRECAUTIONS IN PLACE, BED LOCKED AND IN LOWEST POSITION, BED ALARM ON, THREE SIDE RAILS UP, CALL LIGHT WITH PATIENT, WILL ENDORSE CARE TO DAYSHIFT RN.
[2019-10-20 07:04] LABS: BASOPHILS % (AUTO) 0.4 % (0.0-2.0); EOSINOPHILS % (AUTO) 0.3 % (0.0-4.0); HEMATOCRIT 24.1 % (36-54); HEMOGLOBIN 7.9 g/dL (14.0-18.0); LYMPHOCYTES # (AUTO) 0.2 K/uL (1.0-5.5); LYMPHOCYTES % (AUTO) 4.2 % (20.5-51.5); MEAN CORPUSCULAR HEMOGLOBIN 31 pg (27-31); MEAN CORPUSCULAR HGB CONC 33 % (32-36); MEAN CORPUSCULAR VOLUME 94 fL (79.0-98.0); MONOCYTES # (AUTO) 0.2 K/uL (0.0-1.0); MONOCYTES % (AUTO) 5.4 % (1.7-9.3); NEUTROPHILS # (AUTO) 3.3 K/uL (1.8-7.7); NEUTROPHILS % (AUTO) 89.7 % (40.0-70.0); RED BLOOD CELL COUNT(AUTO) 2.57 MIL/uL (4.2-6.2); RED CELL DISTRIBUTION WIDTH 17.7 % (9.0-15.0)
[2019-10-20 07:10] LABS: WHITE BLOOD COUNT (AUTO) 3.7 K/uL (4.8-10.8)
--- NOTE | 2019-10-20 08:00 | NUR ---
ASSUMPTION OF CARE: RECEIVED PT A/A/OX4, DX:INADEQUATE VENTILATION, R/T PNEUMONIA, COPD, VSS, AFEBRILE, NO S/S OF DISTRESS, BREATH SOUNDS WITH WHEEZES THROUGHOUT LUNG RUBY, SATURATING 95% WHILE ON 2L VIA NC, BREATHING UNLABORED, IV SITE INTACT, PATENT, NO REDNESS OR SWELLING, NO C/O PAIN, ORIENTED TO UNIT AND CALL LIGHT, WILL CONT' TO MONITOR AND ASSESS.
--- NOTE | 2019-10-20 09:00 | NUR ---
DRAFTER CHIEF DESIGN: MORNING MEDS GIVEN, PER ORDERED BY Chacorta, TOLERATED WELL, WILL CONT' TO MONITOR AND ASSESS.
--- NOTE | 2019-10-20 09:00 | NUR ---
LATE ENTRY-Discharge Planning: Sharon greer [place] (f [phone] p [phone]) accepted [address] # [phone]
[2019-10-20 09:08] LABS: PLATELET COUNT (AUTO) 68 K/uL (130-430)
[2019-10-20 09:30] VITALS: BP_SYST 139
[2019-10-20] MEDS: PANTOPRAZOLE SODIUM 40 MG TAB PO SCH (09:59)
[2019-10-20] MEDS: TAMSULOSIN HCL 0.4 MG CAP PO SCH (09:59)
[2019-10-20] MEDS: PREGABALIN 75 MG CAPSULE (LYRICA) PO SCH ×3 (09:59→21:58)
[2019-10-20] MEDS: FOLIC ACID 1 MG TABLET PO SCH (09:59)
[2019-10-20] MEDS: NEPHROVITE, (FOLIC ACID/VITAMIN B COMP W-C 1 TAB) PO SCH (09:59)
[2019-10-20] MEDS: amLODIPine BESYLATE 5 MG TABLET PO SCH (10:00)
--- NOTE | 2019-10-20 10:00 | NUR ---
END OF SHIFT: PT REMAINS STABLE, ASLEEP IN POSITION OF COMFORT, WILL ENDORSE TO STEEL ANALYST NURSE. Addendum: 10/20/19 at 1917 by Nava Briceño RN WRONG TIME
[2019-10-20] MEDS: AMIODARONE HCL 200 MG TABLET PO SCH (10:01)
--- NOTE | 2019-10-20 10:03 | NUR ---
[facility]: Called back to pt's spouse/Kaylee regarding her concerns about [facility] Medicare star rating of 2. She did research on internet and read the reviews which concluded her decision not wanting pt to transfer to the [place] location but she will consider other locations. BARNEY/Sherry provided [place] location list via email to her per request: . -- Sharon/[facility] made aware, Dr. Guillermo made aware.
[2019-10-20] MEDS: ENALAPRIL MALEATE 5 MG TABLET (VASOTEC) PO SCH (10:14)
[2019-10-20] MEDS: BALSAM PERU/CASTOR OIL 60 GM OINT...G. TP SCH (10:14)
[2019-10-20] MEDS: VORICONAZOLE 200 MG in NS 100 ML IV SCH ×2 (10:15→20:23)
--- NOTE | 2019-10-20 11:30 | NUR ---
GLUCOSE MONITORING: BLOOD SUGAR NUATX=607 NO COVERAGE REQUIRED, PT TOLERATING WELL, WILL CONT' WITH POC.
[2019-10-20] MEDS: SOD FERRIC GLUC COMPLEX/SUC 125 MG in NS 100 ML IV SCH (11:35)
[2019-10-20] MEDS ORDERED: NAFCILLIN SODIUM 1 GM in NS 50 ML IV ONE (11:45)
[2019-10-20 12:39] VITALS: BP_SYST 138
[2019-10-20 14:06] LABS: BASOPHILS % (AUTO) 0.5 % (0.0-2.0); EOSINOPHILS % (AUTO) 0.6 % (0.0-4.0); HEMATOCRIT 26.3 % (36-54); HEMOGLOBIN 8.6 g/dL (14.0-18.0); LYMPHOCYTES # (AUTO) 0.1 K/uL (1.0-5.5); LYMPHOCYTES % (AUTO) 3.8 % (20.5-51.5); MEAN CORPUSCULAR HEMOGLOBIN 30 pg (27-31); MEAN CORPUSCULAR HGB CONC 33 % (32-36); MEAN CORPUSCULAR VOLUME 92 fL (79.0-98.0); MONOCYTES # (AUTO) 0.1 K/uL (0.0-1.0); MONOCYTES % (AUTO) 3.8 % (1.7-9.3); NEUTROPHILS # (AUTO) 3.4 K/uL (1.8-7.7); NEUTROPHILS % (AUTO) 91.3 % (40.0-70.0); PLATELET COUNT (AUTO) 70 K/uL (130-430); RED BLOOD CELL COUNT(AUTO) 2.85 MIL/uL (4.2-6.2); RED CELL DISTRIBUTION WIDTH 17.9 % (9.0-15.0); WHITE BLOOD COUNT (AUTO) 3.7 K/uL (4.8-10.8)
[2019-10-20 14:15] LABS: INR 1.3 (0.80-1.20); PROTHROMBIN TIME 12.9 SECS (9.5-12.5)
--- NOTE | 2019-10-20 14:17 | NUR ---
DC PLANNING Order to dc to SNF if cleared by specialists. Pt from [facility], called & spoke w dtr Tere, ph [phone], verified Kaylee is pt's sister not . States she is in agreement with dc back to [facility], did not want [facility] has alot of bad reviews. If specialist clear for SNF then would be in agreeable w dc to [facility]. Spoke w pt & wants to go back to [facility]. Discussed w pt's nurse Nava, she is calling to get clearance from specialists. gala Powell train planner aware.
--- NOTE | 2019-10-20 14:19 | NUR ---
Discharge Planning: ARIADNEP faxed pt referral to [facility] (f [phone] p [phone]) DCP spoke to BARNEY Denise made CM aware [facility] would like a specific notation stating COVID19 ruled out testing negative.
[2019-10-20 14:25] LABS: ANION GAP 18 (5-15); CALCIUM 7.4 mg/dL (8.4-11.0); CHLORIDE 109 mmol/L (98-107); CREATININE 2.17 mg/dL (0.55-1.30); GLUCOSE 120 mg/dL (70-99); POTASSIUM 4.4 mmol/L (3.5-5.1); SODIUM SERUM 143 mmol/L (136-145); UREA NITROGEN, BLOOD 29 mg/dL (8-21)
--- NOTE | 2019-10-20 15:01 | NUR ---
PHYSICAL THERAPY CO-SIGN The Physical Therapy Progress Notes documented by Career Development Facilitator have been reviewed. Reviewed/Co-Signed by: Luis Garrett PT Documentation Done by: EDELMIRA GARSIA PTA Addendum: 10/20/19 at 1503 by Luis Garrett PT Amended: Links added.
--- NOTE | 2019-10-20 15:58 | NUR ---
ARIADNE PLANNING Received msg from Nanette @ [facility] ph [phone], may not be able to accept. Called & left msg with Nanette to return call to discuss.
[2019-10-20 17:02] VITALS: BP_SYST 129
--- NOTE | 2019-10-20 17:30 | NUR ---
GLUCOSE MONITORING: BLOOD SUGAR LEVEL=86 NO COVERAGE REQUIRED, PT TOLERATING WELL, WILL CONT' WITH POC.
--- NOTE | 2019-10-20 19:00 | NUR ---
END OF SHIFT: PT REMAINS STABLE, ASLEEP IN POSITION OF COMFORT, WILL ENDORSE TO FERTILIZER MIXER NURSE.
[2019-10-20 19:45] VITALS: BP_SYST 124
--- NOTE | 2019-10-20 19:45 | NUR ---
Opening notes Pt awake, no s/s distress noted. O2 sat 96% on 2L oxygen. Pt repositioned. IV L. hand 22G no s/s infiltration. Call light within reach. Bed low, locked, alarm on. To monitor.
[2019-10-20] MEDS: ATORVASTATIN 20 MG TABLET PO SCH (20:26)
--- NOTE | 2019-10-20 22:02 | NUR ---
Blood sugar Pt asleep, easily arousable. Meds passed and blood sugar checked 92. No indication for insulin per protocol. Call ligth remains within reach. Pt repositioned. To monitor. j
--- NOTE | 2019-10-20 22:30 | NUR ---
Paged and spoke w/ RT for breathing txmt. Pt having wheezing.
[2019-10-20 23:43] VITALS: BP_SYST 123
--- NOTE | 2019-10-21 01:00 | NUR ---
Rounds Pt awake, explained to pt reason for PICC line placement. P t signed consent for PICC line placement and placed in chart.
[2019-10-21] MEDS: IPRATROPIUM/ALBUTEROL SULFATE 3 ML AMPUL.NEB (DUONEB) INH SCH ×6 (03:05→23:59)
--- NOTE | 2019-10-21 04:45 | NUR ---
Rounds Pt sleeping, respirations even and unlabored. O2 2L via NC on. IV L. hand 22 clear and patent, no s/s infiltration. Call light within reach. Bed remains low, locked, siderails up x3, alarm on. To monitor.
[2019-10-21] MEDS: NAFCILLIN SODIUM 1 GM in NS 50 ML IV SCH ×4 (04:49→22:18)
--- NOTE | 2019-10-21 06:00 | NUR ---
Paged Pt has not voided. Bladder scanned pt 539ml. Paged Dr. Jordan for orders. Awaiting for callback.
--- NOTE | 2019-10-21 06:01 | NUR ---
paged paged for Dr Scarlett Jordan, dialed . s/w Ruba.
[2019-10-21 06:21] LABS: HEMATOCRIT 22.5 % (36-54); HEMOGLOBIN 7.4 g/dL (14.0-18.0); MEAN CORPUSCULAR HEMOGLOBIN 30 pg (27-31); MEAN CORPUSCULAR HGB CONC 33 % (32-36); MEAN CORPUSCULAR VOLUME 92 fL (79.0-98.0); PLATELET COUNT (AUTO) 67 K/uL (130-430); RED BLOOD CELL COUNT(AUTO) 2.44 MIL/uL (4.2-6.2); RED CELL DISTRIBUTION WIDTH 17.5 % (9.0-15.0); WHITE BLOOD COUNT (AUTO) 2.6 K/uL (4.8-10.8)
[2019-10-21 06:27] LABS: ANION GAP 14 (5-15); CALCIUM 7.2 mg/dL (8.4-11.0); CHLORIDE 107 mmol/L (98-107); CREATININE 2.17 mg/dL (0.55-1.30); GLUCOSE 101 mg/dL (70-99); PHOSPHORUS 2.5 mg/dL (2.7-4.5); POTASSIUM 4.2 mmol/L (3.5-5.1); SODIUM SERUM 137 mmol/L (136-145); UREA NITROGEN, BLOOD 29 mg/dL (8-21)
[2019-10-21] MEDS: NORMAL SALINE 5 ML DISP.SYRIN IVF SCH ×3 (06:31→22:18)
--- NOTE | 2019-10-21 06:40 | NUR ---
Opening notes Pt asleep, easily arousable, no s/s distress noted. O2 sat 96% on 2L oxygen. Blood sugar checked 78. IV L. hand 22G no s/s infiltration. Pageleslye PRASAD for urinary retention. Awaiting PICC line placement. Consent in chart. Call light within reach. Bed low, locked, alarm on. To endorse to AM nurse. Addendum: 10/21/19 at 0742 by Mony Sanabria RN Closing notes
[2019-10-21] MEDS: DILTIAZEM HCL 30 MG TABLET PO SCH ×3 (06:44→22:16)
[2019-10-21 07:19] LABS: C-REACTIVE PROTEIN QUANT 15.3 mg/dL (0-0.5); ERYTHROCYTE SEDIMENTATION RATE > 140 MM/HR (0-15)
--- NOTE | 2019-10-21 07:25 | NUR ---
OPENING NOTES RECEIVED BEDSIDE SBAR FROM NIGHT RN, PATIENT IN BED, EYES CLOSED, RESPIRATIONS EVEN, NON LABORED, CALL LIGHT WITHIN REACH, BED ALARM ON
[2019-10-21 07:39] LABS: ATYPICAL LYMPHOCYTES % 0 % (0-0); BAND % (MANUAL) 5 % (0-6); BASOPHILS % (MANUAL) 0 % (0-2); EOSINOPHILS % (MANUAL) 0 % (0-7); LYMPHOCYTES % (MANUAL) 13 % (20-46); MONOCYTES % (MANUAL) 6 % (0-11)
[2019-10-21 08:00] VITALS: BP_SYST 102
[2019-10-21] MEDS: VORICONAZOLE 200 MG in NS 100 ML IV SCH ×2 (09:15→21:20)
[2019-10-21] MEDS: FOLIC ACID 1 MG TABLET PO SCH (09:15)
[2019-10-21] MEDS: NEPHROVITE, (FOLIC ACID/VITAMIN B COMP W-C 1 TAB) PO SCH (09:16)
[2019-10-21] MEDS: PANTOPRAZOLE SODIUM 40 MG TAB PO SCH (09:16)
[2019-10-21] MEDS: TAMSULOSIN HCL 0.4 MG CAP PO SCH (09:16)
[2019-10-21] MEDS: PREGABALIN 75 MG CAPSULE (LYRICA) PO SCH ×3 (09:16→22:14)
[2019-10-21] MEDS: ENALAPRIL MALEATE 5 MG TABLET (VASOTEC) PO SCH (09:37)
[2019-10-21] MEDS: AMIODARONE HCL 200 MG TABLET PO SCH (09:38)
[2019-10-21] MEDS: amLODIPine BESYLATE 5 MG TABLET PO SCH (09:39)
[2019-10-21] MEDS: BALSAM PERU/CASTOR OIL 60 GM OINT...G. TP SCH (09:43)
--- NOTE | 2019-10-21 11:24 | NUR ---
DR. BOOGIE SPOKE WITH DR BOOGIE REGARDING PATIENTS O2 SATURATION, PER DR BOOGIE, AFTER PATIENT FINISHES CURRENT BREATHING TREATMENT, CHECK WHAT SATURATION IS ON ROOM AIR.
[2019-10-21 12:00] VITALS: BP_SYST 103
--- NOTE | 2019-10-21 12:00 | NUR ---
NURSE NOTE ADVISED DR BOOGIE REGARDING PATIENTS O2 SATURATION, 83% ON ROOM AIR, DR. BOOGIE ORDERED CHEST XRAY AND TO REAPPLY NASAL CANULA 2L APPLIED NASAL CANULA AT 2L O2 SATURATION WAS 92%.
--- NOTE | 2019-10-21 12:30 | NUR ---
Pageleslye Jane regarding DC planning - can the patient discharge from his standpoint and follow up as outpatient for his treatment.
--- NOTE | 2019-10-21 13:00 | NUR ---
DC Planning: late entry: evaluation for discharge: I spoke with dr. Jordan this am, he stated may discharge pt to [facility] per Tere/dtr request , if the pt is accepted. I spoke with Nanette at [facility], she declined accepting the pt at this time. I discussed with Tere for the dcp : that she originally does not want pt going to [facility]. but to send pt to [facility]. Informed her about the Hgb level of 7.4 which show sign of bleeding. The pt may need more monitoring for that. In addition , the pt c/o coughing and sob today. Dr. Reece is pursuing GI procedure to r/o the cause of bleeding but the pt is unable to complete the GI prep. Per ROMY Zuleta, the pt is not stable for discharge today per dr. Jane. Tere is agreeable with the discharge to [facility] instead of [facility] per reasons above. She is to look for another [place] location per list sent to her yesterday. Jules also informed her about the IM letter and emailed her the form for her to sign as well. Addendum: 10/21/19 at 1511 by Sonali Basilio RN Received call back from Tere; given her Ltac of choice #1 to [facility] and #2 [place] [facility]. -- Sharon made aware. JULES faxed the update info to her today. Sharon will forward all clinic info to [facility]. >> The signed IM letter by Tere is received via Email and filed in pt's chart.
--- NOTE | 2019-10-21 13:05 | NUR ---
O2 SATURATION PATIENTS O2 SATURATION WASA 82% ON 2L, INCREASED O2 TO 4L PATIENT SATURATION IS NOW 93%
--- NOTE | 2019-10-21 14:00 | NUR ---
EL[facility]O [facility] PATIENT HAD A BM, CLEANSED ELICEO AREA, CHANGED CHUX, PATIENT TOLERATED WELL, BED IN LOW AND LOCKED POSITION, CALL LIGHT WITHIN REACH, BED ALARM ON
[2019-10-21 16:45] VITALS: BP_SYST 111
[2019-10-21] MEDS ORDERED: NA PHOS 15 MM in NS 250 ML IV ONE (16:45)
--- NOTE | 2019-10-21 17:44 | NUR ---
Rounds/Medication patient resting in bed, awake, denies pain, blood glucose checked and IV antibiotic hung and infusing well, IV line is patent, no s/s of infiltration - spoke with pharmacist Geo regarding new order for sodium phosphate - no interaction has been tested between sodium phosphate and nafcillin IV - separate the two medications - sodium phosphate to be hung after IV antibiotic has infused - will follow up.
--- NOTE | 2019-10-21 19:01 | NUR ---
closing note BEDSIDE SBAR GIVEN TO NIGHT RN, PATIENT IN BED, WATCHING TV, RESPIRATIONS EVEN, NON LABORED, 4L BY NASAL CANULA, BED IN LOW AND LOCKED POSITION, CALL LIGHT WITHIN REACH BED ALARM ON
--- NOTE | 2019-10-21 19:43 | NUR ---
Initial note: Received report from isidro RN. Patient is resting in bed comfortably, no acute distress, even and unlabored breathing on 3L NC. ASHLEIGH PICC receiving sodium phosphate per MD order. Call light with patient. Safety, fall precautions in place. Will continue with plan of care.
[2019-10-21 20:00] VITALS: BP_SYST 121
[2019-10-21] MEDS: ATORVASTATIN 20 MG TABLET PO SCH (22:14)
[2019-10-22 00:17] VITALS: BP_SYST 119
--- NOTE | 2019-10-22 00:41 | NUR ---
rounds: Patient is resting in bed, no acute distress. Tolerating 3L NC. Breathing is even, unlabored. Call light with patient. Will continue to monitor.
[2019-10-22] MEDS: IPRATROPIUM/ALBUTEROL SULFATE 3 ML AMPUL.NEB (DUONEB) INH SCH ×5 (04:28→20:21)
[2019-10-22] MEDS: NAFCILLIN SODIUM 1 GM in NS 50 ML IV SCH ×3 (04:58→16:22)
[2019-10-22] MEDS: DILTIAZEM HCL 30 MG TABLET PO SCH ×2 (05:06→15:07)
[2019-10-22] MEDS: NORMAL SALINE 5 ML DISP.SYRIN IVF SCH ×2 (05:06→15:07)
[2019-10-22 06:15] LABS: ALANINE AMINOTRANSFERASE 61 U/L (12-78); ALBUMIN 1.2 g/dL (3.4-4.8); ANION GAP 13 (5-15); ASPARTATE AMINOTRANSFERASE 50 U/L (10-37); CALCIUM 7.3 mg/dL (8.4-11.0); CHLORIDE 106 mmol/L (98-107); CREATININE 2.54 mg/dL (0.55-1.30); GLUCOSE 106 mg/dL (70-99); PHOSPHORUS 4.1 mg/dL (2.7-4.5); POTASSIUM 3.8 mmol/L (3.5-5.1); SODIUM SERUM 136 mmol/L (136-145); TOTAL BILIRUBIN 0.5 mg/dL (0.0-1.0); UREA NITROGEN, BLOOD 31 mg/dL (8-21)
[2019-10-22 06:22] LABS: BASOPHILS % (AUTO) 0.7 % (0.0-2.0); EOSINOPHILS % (AUTO) 0.7 % (0.0-4.0); HEMATOCRIT 22.8 % (36-54); HEMOGLOBIN 7.5 g/dL (14.0-18.0); LYMPHOCYTES # (AUTO) 0.3 K/uL (1.0-5.5); LYMPHOCYTES % (AUTO) 12.8 % (20.5-51.5); MEAN CORPUSCULAR HEMOGLOBIN 30 pg (27-31); MEAN CORPUSCULAR HGB CONC 33 % (32-36); MEAN CORPUSCULAR VOLUME 92 fL (79.0-98.0); MONOCYTES # (AUTO) 0.3 K/uL (0.0-1.0); MONOCYTES % (AUTO) 11.6 % (1.7-9.3); NEUTROPHILS # (AUTO) 1.6 K/uL (1.8-7.7); NEUTROPHILS % (AUTO) 74.2 % (40.0-70.0); PLATELET COUNT (AUTO) 74 K/uL (130-430); RED BLOOD CELL COUNT(AUTO) 2.47 MIL/uL (4.2-6.2); RED CELL DISTRIBUTION WIDTH 18.1 % (9.0-15.0); WHITE BLOOD COUNT (AUTO) 2.2 K/uL (4.8-10.8)
--- NOTE | 2019-10-22 06:39 | NUR ---
Closing note: Patient is resting in bed comfortably, no acute distress, even and unlabored breathing on 3L NC. ASHLEIGH PICC saline locked. All needs met. Safety, fall precautions in place. Will endorse care to dayshift RN.
[2019-10-22 06:57] LABS: C-REACTIVE PROTEIN QUANT 20.1 mg/dL (0-0.5)
--- NOTE | 2019-10-22 07:11 | NUR ---
opening note received bedside sbar form night RN, patient in bed, respirations even, non labored, call light within reach, bed in low and locked position, bed alarm on.
[2019-10-22 07:32] LABS: ERYTHROCYTE SEDIMENTATION RATE > 140 MM/HR (0-15)
[2019-10-22] MEDS: VORICONAZOLE 200 MG in NS 100 ML IV SCH (08:42)
[2019-10-22] MEDS: PANTOPRAZOLE SODIUM 40 MG TAB PO SCH (08:42)
[2019-10-22] MEDS: amLODIPine BESYLATE 5 MG TABLET PO SCH (08:42)
[2019-10-22] MEDS: FOLIC ACID 1 MG TABLET PO SCH (08:43)
[2019-10-22] MEDS: TAMSULOSIN HCL 0.4 MG CAP PO SCH (08:43)
[2019-10-22] MEDS: NEPHROVITE, (FOLIC ACID/VITAMIN B COMP W-C 1 TAB) PO SCH (08:43)
[2019-10-22] MEDS: PREGABALIN 75 MG CAPSULE (LYRICA) PO SCH (08:43)
[2019-10-22] MEDS: AMIODARONE HCL 200 MG TABLET PO SCH (08:44)
[2019-10-22] MEDS: ENALAPRIL MALEATE 5 MG TABLET (VASOTEC) PO SCH (08:45)
--- NOTE | 2019-10-22 09:00 | NUR ---
nurse notes patient in bed, watching tv, alert, oriented, respirations even, non labored, shallow, bed in low and locked position, call light within reach, bed alarm on
[2019-10-22] MEDS: BALSAM PERU/CASTOR OIL 60 GM OINT...G. TP SCH (10:33)
--- NOTE | 2019-10-22 11:57 | NUR ---
PHYSICAL THERAPY CO-SIGN The Physical Therapy Progress Notes documented by Seafood Preparer have been reviewed. Reviewed/Co-Signed by: Luis Garrett PT Documentation Done by: EDELMIRA GARSIA PTA Addendum: 10/22/19 at 1159 by Luis Garrett PT Amended: Links added.
--- NOTE | 2019-10-22 11:58 | NUR ---
PHYSICAL THERAPY CO-SIGN The Physical Therapy Progress Notes documented by Foam Machine Operator have been reviewed. Reviewed/Co-Signed by: Luis Garertt PT Documentation Done by: EDELMIRA GARSIA PTA Addendum: 10/22/19 at 1159 by Luis Garrett PT Amended: Links added.
[2019-10-22 12:35] VITALS: BP_SYST 134
--- NOTE | 2019-10-22 13:00 | NUR ---
nurse note repositioned patient, patient tolerated well, no signs of distress
[2019-10-22] MEDS ORDERED: 0.45% NACL 1,000 ML IV SCH (13:30)
--- NOTE | 2019-10-22 13:53 | NUR ---
Nutrition F/U RD reviewed pt's current EMR record including diet Hx, physician notes, nursing notes, pertinent labs/meds/procedures, care trends, and care activity. Admission Dx: Pneumonia, COPD Pt also found w/ Acute Respiratory Failure, COPD acute exacerbation, HTN, Elevated Troponin, MANNY, Multiple Myeloma, Possible Pneumonia, Hyperglycemia, Lactic Acidosis, Transaminitis, Hyperalbuminemia, Protein-calorie malnutrition-severe. PMH: COPD, HTN, Renal Disease, Multiple Myeloma per MD notes. Pertinent Medical Info: Pt tested negative for Coronavirus PCR per EMR Current Diet Order/Nutrition Support: CCHO, renal, 60 gm protein diet w/ Glucerna TID x3 days Subjective Info: RD called pt's room and spoke w/ pt via phone call. Pt reported good appetite and eating everything on his meal trays today. Pt also confirmed that he has been receiving Glucerna ONS w/ meal trays TID, and enjoys them -- he would like to continue ONS and flavor preference (chocolate). Pt reported last BM was yesterday, and no c/o chewing/swallowing, N/V/C/D. Current diet is appropriate, and appetite seems to be improving since last RD F/U 10/19/19. Skin Integrity Comment: Darrel scale: 16; posterior upper back w/ scar per EMR Current % PO 50% average x3 meals Estimated Energy Expenditure (kcals/day) 0668-6016 kcal/day (30-35 kcal/kg CBW for COPD) Estimated Protein Required (g/day) 66gm/day (1gm/kg CBW for Renal Disease predialysis) Estimated Fluid Required (l/day) per MD (CKD/ARF) Problem/Etiology/Signs/Symptoms *modified Altered nutrition-related labs r/t medication interaction AEB elevated BG and steroid use. *ongoing Altered nutrition-related labs r/t renal dysfunction AEB elevated K, BUN and CRE lab values and Hx of Renal Disease. *ongoing Expected Outcomes/Goals Monitor appetite and PO intake w/ goal of pt meeting at least 75% of estimated nutritional needs, labs trending WNL, normal GI function, skin integrity/wt maintenance. Dietitian Recommendations * Recommend continuing CCHO, renal, 60 gm protein diet w/ Glucerna TID (ONS provides 660 kcal/day, 30 gm protein/day) Follow Up Moderate Risk: F/U in 3-5 days Addendum: 10/22/19 at [address] Pt declined nutrition education when offered.
--- NOTE | 2019-10-22 13:57 | NUR ---
Dietitian Recommendations * Recommend continuing CCHO, renal, 60 gm protein diet w/ Glucerna TID (ONS provides 660 kcal/day, 30 gm protein/day) LP, RD Please refer to Nutrition F/U for details.
--- NOTE | 2019-10-22 14:39 | NUR ---
DC Planning: met with dr. Jordan in [facility] unit during his rounding, he order to dc pt to [place] today. I LVM to Kaylee/sister and notified Tere /DTR # [phone] , she agreed with the transfer to [facility] today. ROMY Zuleta made aware and to f/u the dc order from dr. Jordan. .
[2019-10-22] MEDS ORDERED: CAR30 PO (14:50)
[2019-10-22] MEDS ORDERED: [UNRECOGNIZED DRUG - CODE] IV (14:50)
[2019-10-22] MEDS ORDERED: FOLI-43 PO (14:50)
[2019-10-22] MEDS ORDERED: [UNRECOGNIZED DRUG - CODE] IJ (14:50)
[2019-10-22] MEDS ORDERED: IPRA3AMP9 INH (14:50)
--- NOTE | 2019-10-22 15:19 | NUR ---
Discharge Planning: DCP faxed DC order to Sharon at [facility] to receive a room.. Patient was accepted to [facility], when room available Sharon will call nurse station. DCP put transportation on Will Call with [facility] ([phone]) BLS O2 4liters. DCP to patient packet to nurse station, nurse made aware.
[2019-10-22 17:01] VITALS: BP_SYST 107
--- NOTE | 2019-10-22 17:01 | NUR ---
[facility] CALLED AT SPOKE WITH GEO (DISPATCHER) FOR A PICK-UP TIME AT 2200.
[2019-10-22] MEDS: INSULIN REGULAR, HUMAN 100 UNITS/ML, 10 ML VIAL (humuLIN R) SUBCUT PRN (17:48)
[2019-10-22 18:00] VITALS: BP_SYST 107
[2019-10-22] MEDS ORDERED: DEXAMETHASONE SOD PHOSPHATE 10 MG/ML VIAL IVP SCH (18:00)
--- NOTE | 2019-10-22 18:56 | NUR ---
report called to give report to RN at [facility], no RN available, someone will call back, informed them that [facility] is picking patient at 2000
--- NOTE | 2019-10-22 19:15 | NUR ---
closing note bedside sbar given to night RN, patient in bed awake, respiration even non labored, shallow, call light within reach, bed in low and locked position, bed alarm on. Advised RN that report needed to be called for discharge patient to be picked up at 2000 by [facility]
[2019-10-22 19:34] VITALS: BP_SYST 121
--- NOTE | 2019-10-22 19:52 | NUR ---
Report: Called report to ROMY Llamas at [facility] [phone]. Informed regarding picket [employer] time of 8 PM. Patient will be going to unit 2, room 208B.
--- NOTE | 2019-10-22 20:11 | NUR ---
Pickup ETA follow-up: BIGG Tyler called [facility] to follow up regarding pickup ETA. Stated per [facility], ambulance is 10 minutes away.
--- NOTE | 2019-10-22 20:48 | NUR ---
PT TRANSFERRED Report given to ROMY Llamas at [facility]. Transfer packet with Transfer Orders and Medication Reconciliation form given to EMT with report. Exitcare provided. [facility] ID band removed, replaced with ID band with pt's name and . ASHLEIGH PICC line with end caps in place, saline locked. All belongings sent with patient. Patient left floor via gurney escorted by EMT in no distress.
== END 2019-10-22 20:48 | DRG 871 ==
LOC: SED 05:03 → STU 07:19
PROVIDERS: ADMIT Preventive Medicine Preventive Medicine/Occupational Environmental Medicine; ATTEND Preventive Medicine Preventive Medicine/Occupational Environmental Medicine
PROC: 02HV33Z Insertion of Infusion Device into Superior Vena Cava, Percutaneous Approach (ICD-10-PCS; principal; 2019-10-09)
PROC: B548ZZA Ultrasonography of Superior Vena Cava, Guidance (ICD-10-PCS; 2019-10-09)
PROC: 30233N1 Transfusion of Nonautologous Red Blood Cells into Peripheral Vein, Percutaneous Approach (ICD-10-PCS; 2019-10-11)
DX: A41.01 Sepsis due to Methicillin susceptible Staphylococcus aureus (principal); J15.9 Unspecified bacterial pneumonia; E43 Unspecified severe protein-calorie malnutrition; J10.08 Influenza due to other identified influenza virus with other specified pneumonia; I21.A1 Myocardial infarction type 2; J96.21 Acute and chronic respiratory failure with hypoxia; J44.1 Chronic obstructive pulmonary disease with (acute) exacerbation; B37.49 Other urogenital candidiasis; D61.818 Other pancytopenia; E87.2 Acidosis; J44.0 Chronic obstructive pulmonary disease with (acute) lower respiratory infection; N17.9 Acute kidney failure, unspecified; C90.00 Multiple myeloma not having achieved remission; K92.2 Gastrointestinal hemorrhage, unspecified; B44.9 Aspergillosis, unspecified; I12.9 Hypertensive chronic kidney disease with stage 1 through stage 4 chronic kidney disease, or unspecified chronic kidney disease; N18.9 Chronic kidney disease, unspecified; D63.0 Anemia in neoplastic disease; D63.1 Anemia in chronic kidney disease; D89.9 Disorder involving the immune mechanism, unspecified; E78.00 Pure hypercholesterolemia, unspecified; E83.52 Hypercalcemia; I25.10 Atherosclerotic heart disease of native coronary artery without angina pectoris; I48.91 Unspecified atrial fibrillation; Y95 Nosocomial condition; E83.39 Other disorders of phosphorus metabolism; Z80.1 Family history of malignant neoplasm of trachea, bronchus and lung; Z82.49 Family history of ischemic heart disease and other diseases of the circulatory system; Z87.01 Personal history of pneumonia (recurrent); Z87.891 Personal history of nicotine dependence; Z68.22 Body mass index [BMI] 22.0-22.9, adult; Z79.899 Other long term (current) drug therapy; Z03.818 Encounter for observation for suspected exposure to other biological agents ruled out
CPT/HCPCS: 36415; 71045; 71250-TC; 80048; 80053; 81000-TC; 82272; 82607; 82728; 82746; 82784; 82962; 83540-TC; 83550-TC; 83605; 83735-TC; 83880; 84100-TC; 84155; 84165; 84484; 85007; 85018-TC; 85025; 85027; 85044-TC; 85610-TC; 85651-TC; 85730-TC; 86140; 86635; 86710; 86738; 86886; 86900; 86901; 86920; 87040-TC; 87081; 87086; 87186-TC; 87305; 87899; 93005; 94640; 94760; 96365; 96375; 97110-GP; 97530-GP; 99285; C1751; G0378; J0456; J0610; J0696; J1030; J1100; J1815; J2060; J2185; J2405; J2916; J2930; J3465; J3480; J3490; J7040; J7050; J7613; P9021; Q9964; U0002